=== PATIENT | female | born 1970 | race Caucasian/White ===

== ENCOUNTER 2017-07-18 14:30 | Inpatient (IN) | payer MEDICAID ==
[~2017-07-18] VITALS: Ht 167.6 cm; Wt 63.5 kg
[~2017-07-18 14:30] MED LIST: ACETAMINOPHEN-1 EAC1 PO; CIPRO500 MG PO; CLEOCIN HCL150 MG; CLEOCIN HCL150 MG PO; DOXYCYCLINE 10100 MG PO; FLECAINIDE ACET50 M1; FLEXERIL; FLEXERIL PO; FLOMAX0.4 MG PO; GLUCOPHAGE500 MG; HYDROCODON-ACE1 EAC7 PO; HYDROCODONE-AP1 EAC6 PO; IBUPROFEN 800800 M1 PO; IMODIUM ADVANC1 EAC1 PO; LISINOPRIL10 MG PO; LOPRESSOR25; MACROBID 100 M100 MG PO; METFORMIN HCL500 MG; METFORMIN HCL500 MG PO; NEURONTIN 300300 M1 PO; NORCO 5-325 TA1 EAC1 PO; NORCO 5-325 TA1 EACH PO; NORFLEX100 MG PO; PHENERGAN 25 MG25 M1 PO; PREDNISONE50 MG PO; PRINIVIL20 MG; PYRIDIUM200 MG PO; RANITIDINE 150150 M1; ROBAXIN500 MG PO; TOPROL XL200 MG PO; TRAMADOL 50 MG50 MG PO; VICODIN 5-3001 EACH; ZOFRAN4 MG PO
--- NOTE | 2017-07-18 14:34 | NUR ---
DR VARGAS IN ROOM AT THIS TIME
[2017-07-18 14:35] VITALS: BP 147/94
[2017-07-18 15:06] LABS: HEMOGLOBIN 14.2 gm/dL (12.0-15.0); MCH 31.4 pg (26.0-34.0); RDW-CV 12.3 % (10.5-14.5)
[2017-07-18 15:09] LABS: ABSOLUTE BASOPHILS 0.1 thou/uL (0.0-0.2); ABSOLUTE EOSINOPHILS 0.4 thou/uL (0.0-0.7); ABSOLUTE MONOCYTES 0.9 thou/uL (0.0-1.2); ABSOLUTE NEUTROPHILS 4.8 thou/uL (1.6-8.1); BASOPHILS 0.6 %; EOSINOPHILS 3.4 %; HEMATOCRIT 41.6 % (37.0-47.0); MCHC 34.2 g/dL (28.0-37.0); MCV 91.7 fL (80.0-100.0); MONOCYTES 8.3 %; MPV 9.3 fl. (7.2-11.1); NUCLEATED RBCS 0 /100WBC; PLATELET COUNT* 291 thou/uL (150-400); POLYS 42.7 %; RBC 4.54 mil/uL (4.20-5.00); WBC 11.2 thou/uL (4.0-11.0)
[2017-07-18 15:16] LABS: APTT 20.9 Seconds (25.0-31.3); INR 1.1; PROTIME 10.7 Seconds (9.20-11.50)
[2017-07-18 15:20] LABS: ANION GAP 12 mmol/L (7-16); BUN 7 mg/dL (7-18); CALCIUM 9.4 mg/dL (8.5-10.1); CHLORIDE 100 mmol/L (98-107); CO2 29 mmol/L (21-32); GLUCOSE 152 mg/dL (70-99); POTASSIUM 4.2 mmol/L (3.5-5.1); SODIUM 141 mmol/L (136-145)
[2017-07-18 15:27] LABS: INFLUENZA A ANTIGEN None Detected (None Detect); INFLUENZA B ANTIGEN None Detected (None Detect)
[2017-07-18 15:49] LABS: ALBUMIN 4.2 g/dL (3.4-5.0); ALKALINE PHOSPHATASE 100 U/L (46-116); NT-PRO BRAIN NAT PEPTIDE 67 pg/mL (<300); SGOT 43 U/L (15-37); SGPT 34 U/L (30-65); TOTAL BILIRUBIN 0.3 mg/dL (<0.1-1.0); TOTAL PROTEIN 8.4 g/dL (6.4-8.2); TROPONIN-I LEVEL <0.06 ng/mL (<0.06)
[2017-07-18 16:00] LABS: URINE BILIRUBIN NEGATIVE (Negative); URINE BLOOD NEGATIVE (Negative); URINE CLARITY CLEAR; URINE COLOR YELLOW; URINE GLUCOSE-RANDOM NEGATIVE (Negative); URINE KETONES NEGATIVE (Negative); URINE LEUKOCYTES-REFLEX 1+ (Negative); URINE NITRITE-REFLEX NEGATIVE (Negative); URINE PROTEIN NEGATIVE (Negative); URINE SPECIFIC GRAVITY <= 1.005 (1.005-1.030); URINE UROBILINOGEN 0.2 E.U./dl (0.2-1.0)
[2017-07-18 16:10] LABS: CK-MB MASS 1.7 ng/mL (<0.5-3.6)
[2017-07-18 16:13] LABS: AMP/METHAMP Negative (Negative); BARBITURATES Negative (Negative); BENZODIAZEPINES POSITIVE (Negative); COCAINE Negative (Negative); METHADONE Negative (Negative); OPIATES POSITIVE (Negative); PCP Negative (Negative); THC Negative (Negative)
[2017-07-18 16:32] LABS: URINE WBC-REFLEX 0-5 Rare /HPF (0-5)
[2017-07-18 16:33] LABS: CASTS None Seen /LPF (None Seen); CRYSTALS None Seen /LPF (None Seen); MUCUS None Seen strn/LPF (None Seen); SQUAMOUS 0-3 Few /LPF (0-3); URINE RBC None Seen /HPF (0-2)
[2017-07-18 16:34] LABS: BACTERIA-REFLEX None Seen /HPF (None Seen)
[2017-07-18 17:16] LABS: CSF GLUCOSE 100 mg/dl (40-70); CSF PROTEIN 44.5 mg/dl (15-45)
[2017-07-18 17:35] LABS: CSF CLARITY CLEAR; CSF COLOR COLORLESS; CSF RBC 1 /mm3; CSF WBC 2 /mm3 (0-10); VOLUME 8 ml
[2017-07-18 18:15] LABS: BE -2.4 mmol/L (-2 to +3); HCO3 21.7 mmol/L (22.0-26.0); PCO2 35.3 mmHg (35.0-45.0); PO2 97.7 mmHg (75.0-100.0); pH 7.407 (7.340-7.450)
[2017-07-18 20:04] VITALS: BP 102/48
[2017-07-18 21:00] VITALS: BP 115/58
[2017-07-19] VITALS (7 sets, daily range): BP systolic 82–121; BP diastolic 34–61
--- NOTE | 2017-07-19 04:58 | NUR ---
ASSUMED PT CARE AT 1930, PT IS DROWSY AND LETHARGIC, SHE IS ALERT AND CAN ANSER QUESTIONS CORRECTLY BUT IS SLOW TO RESPOND AND SOMETIMES GETS MIXED UP. PT IS TRACING NSR ON THE MONITOR, ON RA SATTING MID TO HIGH 90'S. ADMISSION COMPLETED CHARTED, PT WAS A POOR HISTORIAN THIS SHIFT. PT IS UP WITH ONE TO THE BSC, SHE IS VERY UNSTABLE ON HER FEET. BED IN LOW POSITION, CALL LIGHT IN REACH, BED ALARM ON, YELLOW ARM BAND AND SOCKS IN PLACE. HOURLY ROUNDING COMPLETED FOR PT SAFETY.
--- NOTE | 2017-07-19 13:10 | EKG ---
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 : 1970 Requested By: Armando Alvarez Order Number: [id number] MD: Olvin Russell Measurements Intervals [place] Rate: 76 P: -11 [place]: 185 QRS: 9 QRSD: 83 T: 46 QT: 398 QTc: 448 Interpretive Statements Sinus rhythm Abnormal R-wave progression, early transition No previous ECG available for comparison Electronically Signed On 07-19-2017 13:10:05 DENIAL MANAGEMENT REPRESENTATIVE by Olvin Russell [email or web address] <ELECTRONICALLY SIGNED> By: Olvin Russell MD, [facility] 07/19/17 1310 1443 1443 Olvin Russell MD, FAC /EPI
--- NOTE | 2017-07-19 14:52 | NUR ---
MET WITH PT TO DISCUSS HOME SITUATION/DC PLANNING. PT LIVES WITH HER PARENTS. SHE IS INDEPENDENT WITH ADLS, USES CANE AND SHOWER CHAIR. SHE HASN'T HAD HH. DENIES ANY DC NEEDS AT THIS TIME. PT PLANS TO RETURN HOME AT DC. WILL FOLLOW
--- NOTE | 2017-07-19 16:52 | NUR ---
ASSUMED PT CARE AT 0700 PT IS ALERT AND ORIENTED X 4 PT IS A FALL RISK BED ALARM IS ON PT C/O PAIN GAVE PAIN MEDS THROUGHOUT SHIFT PT B/P WAS LOW AROUND 1200 SINCE PT WAS GIVEN PAIN MEDS WILL CONTINUE TO MONITOR PT BLOOD PRESSURE. PT IS UNSTEADY ON FEET PT IS UP TO COMMODE WITH ASSISTANCE X 1 PT IS NOT STEADY, PT WANTS TO LEAVE PAGED DR MAR AND VOICED CONCERNS ABOUT PT LEAVING PHYSICIAN NOT OK WITH PT DISCHARDING STATED I WANT PT TO GET THE FULL WORKUP IF PT LEAVES IT WILL BE AGAINST MEDICAL ADVICE, EDUCATED PT ON THE IMPORTANCE OF STAYING PT AGREED, PT IS SR ON MONITOR WILL CONTINUE TO MONITOR
[2017-07-20] VITALS: BP 94/52
--- NOTE | 2017-07-20 02:40 | NUR ---
PATIENT HAS BEEN UP TO BATHRROM X 2 THIS EVENING. SHE GETS UP WITHOUT USING CALL LIGHT. ROOM IS CLOSE. INSTRUCTED TO FOR ASSIST TO BR AND USE CALL LIGHT. IBUPROFEN AND HYDROCODONE GIVEN FOR HEADACHE AND NECK PAIN. RESTING COMFORTABLY NOW. CONT. TO MONITOR. BED ALARM ON, CALL LIGHT IN REACH. NO SIGNS OF DISTRESS. CONT. WITH POC.
[2017-07-20 04:00] VITALS: BP 111/61
[2017-07-20 08:00] VITALS: BP 93/57
--- NOTE | 2017-07-20 09:30 | NUR ---
RECEIVED REPORT. ASSUMED CARE OF PT AT 0730. VSS. PT A&O X4 BUT DROWSY WITH A FLAT AFFECT. O2 SAT 98% ON ROOM AIR. CITY WELLNESS COORDINATOR IN PLACE TRACING SR. AM ASSESSMENT AND VITALS COMPLETED CHARTED. IV SALINE LOCKED. PT REPORTS HEADACHE AT 8/10. SEE EMAR FOR ADMINISTRATION AND REASSESSMENT OF PAIN MEDS. ROOM IS DARKENED AND QUIET PER PT REQUEST. PT INFORMED OF PLAN OF CARE, PT COMMUNCIATES UNDERSTANDING. PT EATING AND DRINKING WITHOUT ISSUE. PT UP WITH ASSISTANCE X1 TO THE BATHROOM, VOIDING WITHOUT DIFFICULTY. HIGH FALL RISK PRECAUTIONS IN PLACE. CALL LIGHT IS WITHIN REACH. WILL CONTINUE TO MONITOR.
[2017-07-20] MEDS ORDERED: ANTIVERT25 MG PO (11:07)
[2017-07-20 11:22] VITALS: BP 103/51
--- NOTE | 2017-07-20 14:15 | NUR ---
DISCHARGE ORDERS RECEIVED. DISCHARGE COMPLETED CHARTED. DISCHARGE SUMMARY AND EDUCATION GONE OVER WITH THE PT. PT COMMUNICATES UNDERSTANDING. IV AND PROTOCOL OFFICER REMOVED. ALL BELONGINGS GATHERED AND SENT WITH THE PT. VSS AT TIME OF DISCHARGE. HEADACHE PARTIALLY RELIEVED WITH PO PAIN MEDICATION. PT EATING AND DRINKING WITHOUT ISSUE AT TIME OF DC. PT LEFT UNIT WITH SPOUSE AND NURSING STAFF IN WHEEL CHAIR. PT LEFT FACILITY WITH SPOUSE IN CAR.
[2018-03-19] MEDS ORDERED: ULTRAM 50MG TAB50 MG PO (05:34)
== END 2017-07-20 15:00 | disposition home or self-care (01) | DRG 149 ==
LOC: M.ERS 14:30 → M.2W 18:27 → M.TBA-ER 18:27 → M.2W 20:17
PROVIDERS: Emergency Medicine Emergency Medical Services; ADMIT Internal Medicine
PROC: 009U3ZX Drainage of Spinal Canal, Percutaneous Approach, Diagnostic (ICD-10-PCS; principal; 2017-07-18)
DX: H81.399 Other peripheral vertigo, unspecified ear (principal); G92 Toxic encephalopathy; E87.2 Acidosis; I10 Essential (primary) hypertension; R51 Headache; E11.9 Type 2 diabetes mellitus without complications; M48.00 Spinal stenosis, site unspecified; M19.90 Unspecified osteoarthritis, unspecified site; Z90.49 Acquired absence of other specified parts of digestive tract; Z90.710 Acquired absence of both cervix and uterus; Z79.84 Long term (current) use of oral hypoglycemic drugs; Z79.899 Other long term (current) drug therapy; Z88.0 Allergy status to penicillin

== ENCOUNTER 2017-10-31 20:17 | Emergency (ER) | payer MEDICAID ==
[~2017-10-31] VITALS: Ht 167.6 cm; Wt 63.5 kg
[~2017-10-31 20:17] MED LIST changes: +ANTIVERT25 MG PO
[2017-10-31] MEDS ORDERED: CYCLOBENZAPRINE5 MG PO (20:41)
[2017-10-31 20:55] VITALS: BP 139/80
[2018-03-19] MEDS ORDERED: ULTRAM 50MG TAB50 MG PO (05:34)
== END 2017-10-31 20:55 | disposition home or self-care (01) ==
LOC: M.ERS 20:17
DX: G89.29 Other chronic pain (principal); M54.2 Cervicalgia; I10 Essential (primary) hypertension; E11.9 Type 2 diabetes mellitus without complications; Z88.0 Allergy status to penicillin; Z90.49 Acquired absence of other specified parts of digestive tract; Z90.711 Acquired absence of uterus with remaining cervical stump

== ENCOUNTER 2017-11-18 03:26 | Emergency (ER) | payer MEDICAID ==
[~2017-11-18] VITALS: Ht 167.6 cm; Wt 63.5 kg
[~2017-11-18 03:26] MED LIST changes: +CYCLOBENZAPRINE5 MG PO
[2017-11-18 03:31] VITALS: BP 128/77
[2017-11-18] MEDS ORDERED: CLINDAMYCIN HC300 MG PO (03:44)
[2017-11-18] MEDS ORDERED: NORCO 5-325 TA1 EACH PO (03:44)
[2018-03-19] MEDS ORDERED: ULTRAM 50MG TAB50 MG PO (05:34)
== END 2017-11-18 03:53 | disposition home or self-care (01) ==
LOC: M.ERS 03:26
DX: K08.89 Other specified disorders of teeth and supporting structures (principal); I10 Essential (primary) hypertension; E11.9 Type 2 diabetes mellitus without complications; Z90.49 Acquired absence of other specified parts of digestive tract; Z90.711 Acquired absence of uterus with remaining cervical stump; Z88.0 Allergy status to penicillin

== ENCOUNTER 2017-12-05 04:28 | Emergency (ER) | payer MEDICAID ==
[~2017-12-05] VITALS: Ht 170.2 cm; Wt 63.5 kg
[~2017-12-05 04:28] MED LIST changes: +CLINDAMYCIN HC300 MG PO
[2017-12-05 05:06] LABS: URINE BILIRUBIN NEGATIVE (Negative); URINE BLOOD NEGATIVE (Negative); URINE CLARITY CLEAR; URINE COLOR YELLOW; URINE GLUCOSE-RANDOM NEGATIVE (Negative); URINE KETONES NEGATIVE (Negative); URINE LEUKOCYTES-REFLEX 1+ (Negative); URINE NITRITE-REFLEX NEGATIVE (Negative); URINE PROTEIN NEGATIVE (Negative); URINE UROBILINOGEN 0.2 E.U./dl (0.2-1.0)
[2017-12-05 05:12] LABS: BACTERIA-REFLEX >30 Many /HPF (None Seen); CASTS None Seen /LPF (None Seen); MUCUS 0-3 Light strn/LPF (None Seen); SQUAMOUS 0-3 Few /LPF (0-3); URINE RBC 0-2 Rare /HPF (0-2); WBC CLUMPS Few (None Seen)
[2017-12-05 05:13] LABS: CRYSTALS None Seen /LPF (None Seen)
[2017-12-05 05:26] LABS: MCHC 35.6 g/dL (28.0-37.0); WBC 7.6 thou/uL (4.0-11.0)
[2017-12-05 05:28] LABS: HEMATOCRIT 34.9 % (37.0-47.0); HEMOGLOBIN 12.4 gm/dL (12.0-15.0); MCH 32.3 pg (26.0-34.0); MCV 90.8 fL (80.0-100.0); MPV 8.5 fl. (7.2-11.1); NUCLEATED RBCS 0 /100WBC; PLATELET COUNT* 300 thou/uL (150-400); RBC 3.85 mil/uL (4.20-5.00); RDW-CV 12.9 % (10.5-14.5)
[2017-12-05 05:38] LABS: CALCIUM 9.1 mg/dL (8.5-10.1); POTASSIUM 3.8 mmol/L (3.5-5.1)
[2017-12-05 05:42] LABS: APTT 22.4 Seconds (25.0-31.3); INR 1.1; PROTIME 10.7 Seconds (9.20-11.50)
[2017-12-05 05:43] LABS: ALBUMIN 3.6 g/dL (3.4-5.0); TOTAL BILIRUBIN 0.2 mg/dL (<0.1-1.0); TOTAL PROTEIN 6.8 g/dL (6.4-8.2)
[2017-12-05 06:18] LABS: ABSOLUTE EOSINOPHILS 0.3 thou/uL (0.0-0.7); ABSOLUTE LYMPHOCYTES 5.2 thou/uL (0.8-5.3); ABSOLUTE MONOCYTES 0.4 thou/uL (0.0-1.2); ABSOLUTE NEUTROPHILS 1.7 thou/uL (1.6-8.1)
[2017-12-05 06:19] LABS: ANISOCYTOSIS 1+; PLATELET ESTIMATE ADEQUATE
[2017-12-05 06:44] VITALS: BP 105/66
[2018-03-19] MEDS ORDERED: ULTRAM 50MG TAB50 MG PO (05:34)
== END 2017-12-05 06:46 | disposition home or self-care (01) ==
LOC: M.ERS 04:28
PROVIDERS: Family Medicine
DX: R53.1 Weakness (principal); M19.90 Unspecified osteoarthritis, unspecified site; I10 Essential (primary) hypertension; E11.9 Type 2 diabetes mellitus without complications; Z90.49 Acquired absence of other specified parts of digestive tract; Z90.710 Acquired absence of both cervix and uterus; Z88.0 Allergy status to penicillin

== ENCOUNTER 2017-12-25 22:11 | Emergency (ER) | payer MEDICAID ==
[~2017-12-25] VITALS: Ht 170.2 cm; Wt 65.8 kg
[2017-12-25 22:32] LABS: URINE BILIRUBIN NEGATIVE (Negative); URINE BLOOD NEGATIVE (Negative); URINE CLARITY HAZY; URINE COLOR YELLOW; URINE GLUCOSE-RANDOM 1+ (Negative); URINE KETONES NEGATIVE (Negative); URINE LEUKOCYTES-REFLEX 1+ (Negative); URINE NITRITE-REFLEX NEGATIVE (Negative); URINE PROTEIN NEGATIVE (Negative); URINE SPECIFIC GRAVITY <= 1.005 (1.005-1.030); URINE UROBILINOGEN 0.2 E.U./dl (0.2-1.0)
[2017-12-25 22:53] LABS: CASTS None Seen /LPF (None Seen); SQUAMOUS 4-10 Moderate /LPF (0-3); URINE RBC None Seen /HPF (0-2); URINE WBC-REFLEX 0-5 Rare /HPF (0-5)
[2017-12-25 22:54] LABS: BACTERIA-REFLEX 1-9 Few /HPF (None Seen); CRYSTALS None Seen /LPF (None Seen)
[2017-12-26] MEDS ORDERED: FLAGYL500 MG PO (00:19)
[2017-12-26 00:27] VITALS: BP 132/77
[2018-03-19] MEDS ORDERED: ULTRAM 50MG TAB50 MG PO (05:34)
== END 2017-12-26 00:28 | disposition home or self-care (01) ==
LOC: M.ERS 22:11
PROVIDERS: Emergency Medicine
DX: N76.0 Acute vaginitis (principal); B96.89 Other specified bacterial agents as the cause of diseases classified elsewhere; I10 Essential (primary) hypertension; E11.9 Type 2 diabetes mellitus without complications; Z90.49 Acquired absence of other specified parts of digestive tract; Z90.711 Acquired absence of uterus with remaining cervical stump; Z88.0 Allergy status to penicillin

== ENCOUNTER 2018-01-05 22:43 | Emergency (ER) | payer MEDICAID ==
[~2018-01-05] VITALS: Ht 170.2 cm; Wt 63.5 kg
[~2018-01-05 22:43] MED LIST changes: +FLAGYL500 MG PO
[2018-01-05] MEDS ORDERED: VOLTAREN GEL 1100 G1 TOP ×2 (23:32→23:42)
[2018-01-05] MEDS ORDERED: VOLTAREN GEL 1100 G2 TOP (23:34)
[2018-01-05 23:50] VITALS: BP 124/77
[2018-03-19] MEDS ORDERED: ULTRAM 50MG TAB50 MG PO (05:34)
== END 2018-01-05 23:51 | disposition home or self-care (01) ==
LOC: M.ERS 22:43
DX: G89.29 Other chronic pain (principal); M25.512 Pain in left shoulder; I10 Essential (primary) hypertension; E11.9 Type 2 diabetes mellitus without complications; Z90.49 Acquired absence of other specified parts of digestive tract; Z90.711 Acquired absence of uterus with remaining cervical stump; Z88.0 Allergy status to penicillin

== ENCOUNTER 2018-02-19 05:47 | Emergency (ER) | payer MEDICAID ==
[~2018-02-19] VITALS: Ht 165.1 cm; Wt 81.7 kg
[~2018-02-19 05:47] MED LIST changes: +VOLTAREN GEL 1100 G1 TOP; +VOLTAREN GEL 1100 G2 TOP
[2018-02-19 06:08] LABS: URINE BILIRUBIN NEGATIVE (Negative); URINE BLOOD NEGATIVE (Negative); URINE CLARITY CLEAR; URINE COLOR STRAW; URINE GLUCOSE-RANDOM TRACE (Negative); URINE KETONES NEGATIVE (Negative); URINE LEUKOCYTES-REFLEX 1+ (Negative); URINE NITRITE-REFLEX NEGATIVE (Negative); URINE PROTEIN NEGATIVE (Negative); URINE UROBILINOGEN 0.2 E.U./dl (0.2-1.0)
[2018-02-19] MEDS ORDERED: PEPCID20 MG PO (06:22)
[2018-02-19] MEDS ORDERED: CARAFATE 1 GM TA1 GM PO (06:22)
[2018-02-19] MEDS ORDERED: ZOFRAN ODT4 MG PO (06:22)
[2018-02-19 06:28] LABS: AMP/METHAMP Negative (Negative); BARBITURATES Negative (Negative); BENZODIAZEPINES POSITIVE (Negative); COCAINE Negative (Negative); METHADONE Negative (Negative); OPIATES POSITIVE (Negative); PCP Negative (Negative); THC Negative (Negative)
[2018-02-19 06:32] LABS: CASTS None Seen /LPF (None Seen); SQUAMOUS >10 Many /LPF (0-3)
[2018-02-19 06:33] LABS: URINE WBC-REFLEX 6-15 Few /HPF (0-5)
[2018-02-19 06:34] LABS: BACTERIA-REFLEX 1-9 Few /HPF (None Seen); CRYSTALS None Seen /LPF (None Seen); URINE RBC 0-2 Rare /HPF (0-2)
[2018-02-19 06:39] VITALS: BP 127/70
[2018-03-19] MEDS ORDERED: ULTRAM 50MG TAB50 MG PO (05:34)
== END 2018-02-19 06:40 | disposition home or self-care (01) ==
LOC: M.ERS 05:47
PROVIDERS: Emergency Medicine
DX: K29.70 Gastritis, unspecified, without bleeding (principal); I10 Essential (primary) hypertension; M19.90 Unspecified osteoarthritis, unspecified site; E11.9 Type 2 diabetes mellitus without complications; Z90.49 Acquired absence of other specified parts of digestive tract; Z90.711 Acquired absence of uterus with remaining cervical stump; Z88.0 Allergy status to penicillin

== ENCOUNTER 2018-03-19 05:15 | Emergency (ER) | payer MEDICAID ==
[~2018-03-19] VITALS: Ht 170.2 cm; Wt 65.8 kg
[~2018-03-19 05:15] MED LIST changes: +CARAFATE 1 GM TA1 GM PO; +PEPCID20 MG PO; +ZOFRAN ODT4 MG PO
[2018-03-19 05:26] VITALS: BP 149/51
[2018-03-19] MEDS ORDERED: ULTRAM 50MG TAB50 MG PO ×2 (05:34)
== END 2018-03-19 05:40 | disposition home or self-care (01) ==
LOC: M.ERS 05:15
DX: S00.83XA Contusion of other part of head, initial encounter (principal); S70.01XA Contusion of right hip, initial encounter; I10 Essential (primary) hypertension; E11.9 Type 2 diabetes mellitus without complications; Z90.49 Acquired absence of other specified parts of digestive tract; Z90.710 Acquired absence of both cervix and uterus; Z88.0 Allergy status to penicillin; W18.2XXA Fall in (into) shower or empty bathtub, initial encounter; Y93.89 Activity, other specified; Y92.89 Other specified places as the place of occurrence of the external cause; Y99.8 Other external cause status

== ENCOUNTER 2018-03-22 10:22 | Emergency (ER) | payer MEDICAID ==
[~2018-03-22] VITALS: Ht 170.2 cm; Wt 65.8 kg
[~2018-03-22 10:22] MED LIST changes: +ULTRAM 50MG TAB50 MG PO
[2018-03-22] MEDS ORDERED: ACETAMINOPHEN-1 EAC1 PO (10:54)
[2018-03-22] MEDS ORDERED: DIFLUCAN150 M1 PO (10:54)
[2018-03-22] MEDS ORDERED: CLEOCIN HCL300 MG PO (10:54)
[2018-03-22 11:04] VITALS: BP 128/86
== END 2018-03-22 11:04 | disposition home or self-care (01) ==
LOC: M.ERS 10:22
DX: K02.9 Dental caries, unspecified (principal); E11.9 Type 2 diabetes mellitus without complications; I10 Essential (primary) hypertension; M41.9 Scoliosis, unspecified; Z88.0 Allergy status to penicillin; Z90.49 Acquired absence of other specified parts of digestive tract; Z90.711 Acquired absence of uterus with remaining cervical stump

== ENCOUNTER 2018-04-25 15:29 | Inpatient (IN) | payer MEDICAID ==
[~2018-04-25] VITALS: Ht 170.2 cm; Wt 68.3 kg
--- NOTE | ~2018-04-25 | PROC ---
[address] [address] PROCEDURE REPORT Name: BOB BARRIENTOS Room: [address] IN .R.#: [id number] Admission: 04/25/18 Attend Phys: Laureen Ayala Discharge: 04/29/18 Date of : 70 Report #: [id number] THIS REPORT FOR: //name// For GI report, Please see the Provation report in Perceptive 7 content. By: 1256Medical Records Staff INEZ /DAVE
[~2018-04-25 15:29] MED LIST changes: +CLEOCIN HCL300 MG PO; +DIFLUCAN150 M1 PO
[2018-04-25 15:42] VITALS: BP 155/83
[2018-04-25 15:43] LABS: URINE BILIRUBIN NEGATIVE (Negative); URINE BLOOD NEGATIVE (Negative); URINE CLARITY CLEAR; URINE COLOR YELLOW; URINE GLUCOSE-RANDOM 3+ (Negative); URINE KETONES NEGATIVE (Negative); URINE LEUKOCYTES-REFLEX 1+ (Negative); URINE NITRITE-REFLEX NEGATIVE (Negative); URINE PROTEIN NEGATIVE (Negative); URINE SPECIFIC GRAVITY <= 1.005 (1.005-1.030); URINE UROBILINOGEN 0.2 E.U./dl (0.2-1.0)
[2018-04-25 15:51] LABS: SQUAMOUS >10 Many /LPF (0-3)
[2018-04-25 15:52] LABS: CASTS None Seen /LPF (None Seen); CRYSTALS None Seen /LPF (None Seen); MUCUS None Seen strn/LPF (None Seen); URINE RBC None Seen /HPF (0-2); URINE WBC-REFLEX 0-5 Rare /HPF (0-5)
[2018-04-25 15:53] LABS: BACTERIA-REFLEX 1-9 Few /HPF (None Seen)
[2018-04-25 15:56] LABS: ABSOLUTE LYMPHOCYTES 1.1 thou/uL (0.8-5.3); ABSOLUTE MONOCYTES 0.1 thou/uL (0.0-1.2); ABSOLUTE NEUTROPHILS 5.1 thou/uL (1.6-8.1); BASOPHILS 0.2 %; EOSINOPHILS 0.1 %; HEMATOCRIT 42.2 % (37.0-47.0); HEMOGLOBIN 14.5 gm/dL (12.0-15.0); LYMPHOCYTES 17.2 %; MCH 31.8 pg (26.0-34.0); MCHC 34.3 g/dL (28.0-37.0); MCV 92.7 fL (80.0-100.0); MONOCYTES 1.7 %; MPV 8.4 fl. (7.2-11.1); NUCLEATED RBCS 0 /100WBC; PLATELET COUNT* 290 thou/uL (150-400); POLYS 80.8 %; RBC 4.55 mil/uL (4.20-5.00); RDW-CV 12.3 % (10.5-14.5); WBC 6.4 thou/uL (4.0-11.0)
[2018-04-25 16:11] LABS: CALCIUM 9.2 mg/dL (8.5-10.1); CREATININE 1.4 mg/dL (0.6-1.3); POTASSIUM 4.3 mmol/L (3.5-5.1)
[2018-04-25 16:15] LABS: ALBUMIN 4.1 g/dL (3.4-5.0); TOTAL BILIRUBIN 0.5 mg/dL (<0.1-1.0); TOTAL PROTEIN 7.9 g/dL (6.4-8.2)
--- NOTE | 2018-04-25 18:14 | NUR ---
FOOD TRAY PROVIDED. PT SITTING UP EATING.
[2018-04-25 20:30] VITALS: BP 139/58
[2018-04-25 20:32] VITALS: BP 122/70
[2018-04-26] MEDS ORDERED: NEURONTIN600 MG PO (00:32)
--- NOTE | 2018-04-26 05:20 | NUR ---
PT ADMITTED THIS SHIFT. PT ORIENTED TO ROOM, FALL AGREEMENT WENT OVER, CALL LIGHT SHOWN. PT STATED UNDERSTANDING. ASSESSMENT DOCUMENTED. MEDS GIVEN PER E-MAR. IV PATENT, FLUIDS INFUSING. PAIN MEDICATION GIVEN PER E-MAR. PT COMPLAIED OF DIFFUCULTY EMPTYING BLADDER AND URINARY FREQUENCY, DR NOTIFIED AND LABS TOLD TO . ORDERS RECIEVED. WILL CONTINUE WITH PLAN OF CARE.
[2018-04-26 08:45] VITALS: BP 102/51
[2018-04-26 10:14] LABS: ABSOLUTE LYMPHOCYTES 1.7 thou/uL (0.8-5.3); ABSOLUTE MONOCYTES 1.3 thou/uL (0.0-1.2); ABSOLUTE NEUTROPHILS 10.7 thou/uL (1.6-8.1); BASOPHILS 0.3 %; EOSINOPHILS 0.1 %; HEMATOCRIT 40.3 % (37.0-47.0); HEMOGLOBIN 13.6 gm/dL (12.0-15.0); LYMPHOCYTES 12.4 %; MCH 31.6 pg (26.0-34.0); MCHC 33.7 g/dL (28.0-37.0); MCV 93.8 fL (80.0-100.0); MONOCYTES 9.3 %; MPV 8.7 fl. (7.2-11.1); NUCLEATED RBCS 0 /100WBC; PLATELET COUNT* 297 thou/uL (150-400); POLYS 77.9 %; RDW-CV 12.2 % (10.5-14.5); WBC 13.7 thou/uL (4.0-11.0)
[2018-04-26 10:29] LABS: CALCIUM 8.9 mg/dL (8.5-10.1); CREATININE 1.1 mg/dL (0.6-1.3); POTASSIUM 4.9 mmol/L (3.5-5.1)
[2018-04-26 10:34] LABS: ALBUMIN 3.6 g/dL (3.4-5.0); TOTAL BILIRUBIN 0.4 mg/dL (<0.1-1.0); TOTAL PROTEIN 6.7 g/dL (6.4-8.2)
[2018-04-26 13:31] LABS: CALCIUM 8.8 mg/dL (8.5-10.1); CREATININE 1.2 mg/dL (0.6-1.3)
--- NOTE | 2018-04-26 15:26 | NUR ---
PT.SITTING UP IN BED. STATED SHE FELT A LITTLE NAUSEOUS. WILL INFORM HER NURSE,JASVIR. PT.STATED SHE LIVES WITH PARENTS. PT.SAID SHE IS PRETTY INDEPENDENT. SHE HAS A CANE AND SHOWER CHAIR DUE TO WEAKNESS IN HER LEGS. SHE DRIVES SHORT DISTANCES. [facility]. SHE SAID HER BLOOD SUGARS HAVE BEEN UP THIS PAST WEEK. SHE CHECKS HER BLOOD SUGAR DAILY. CM WILL FOLLOW.
[2018-04-26 17:22] VITALS: BP 99/60
--- NOTE | 2018-04-26 17:30 | NUR ---
ASSUMED CARE OF PATIENT AFTER MORNING REPORT. ALERT AND ORIENTED X4. ASSESSMENT COMPLETED AND CHARTED. VSS ON ROOM AIR. NO COMPLAINTS OF SOA THIS SHIFT. PAIN AND NAUSEA HAVE BEEN MANAGED WITH MEDICATIONS. FLUIDS AND ANTIBIOTICS INFUSED ORDERED. PATIENT RESTING COMFORTABLY IN BED AT THIS TIME. HOURLY ROUNDS MAINTAINED, CALL LIGHT WITHIN REACH, NURSING WILL CONTINUE TO MONITOR.
[2018-04-26 20:00] VITALS: BP 119/76
[2018-04-26 22:06] LABS: GLYCOHEMOGLOBIN (HGB A1C) 9.3 % (4.8-5.6)
[2018-04-27 04:27] LABS: CALCIUM 8.2 mg/dL (8.5-10.1); CREATININE 1.1 mg/dL (0.6-1.3)
--- NOTE | 2018-04-27 04:57 | NUR ---
ASSUMED CARE OF PT AFTER REPORT AT 1930. PT A&OX4. VSS. PHYSICAL ASSESSMENT COMPLETED AND CHARTED. PT ON RA WITH 92% O2 SAT.PT UP ADLIB TO THE TOILET. PT COMPLAINED OF ABDOMINAL AND FLANK PAIN WITH PAIN SCALE OF 8/10- PAIN MEDS GIVEN PER MAR WITH PARTIAL RELIEF. PT RESTED WELL ON BED. PT OM ISOLATION PRECAUTION FOR POSSIBLE C. DIFF. STOOL SPECIMEN STILL TO COLLECT. PT DOES NOT HAVE ANY EPISODE OF LIQUID STOOL FOR TONIGHT. HOURLY ROUNDING OBSERVED. CALL LIGHT WITHIN REACH. BED IN LOW POSITION.
[2018-04-27 09:20] VITALS: BP 111/59
[2018-04-27 16:00] VITALS: BP 110/50
--- NOTE | 2018-04-27 16:22 | NUR ---
ASSUMED CARE OF PATIENT AFTER MORNING REPORT. ALERT AND ORIENTED X4. ASSESSMENT COMPLETED AND CHARTED. VSS ON ROOM AIR. NO COMPLAINTS OF SOA THIS SHIFT. PAIN AND NAUSEA HAVE BEEN MANAGED WITH MEDICATIONS. PATIENT ANXIOUS THIS AFTERNOON AND GIVEN ATIVAN. FLUIDS INFUSED ORDERED. FLUID RESTRICTION ORDERED WITH LAB REDRAW IN THWE AM TO REASSESS SODIUM LEVELS. RESTING COMFORTABLY IN BED ON HOURLY ROUNDS, CALL LIGHT IS WITHIN REACH AND NURSING WILL CONTINUE TO MONITOR.
[2018-04-27 20:50] VITALS: BP 134/75
--- NOTE | 2018-04-28 04:10 | NUR ---
PATIENT REMAINS ALERT AND ORIENTED. PAIN PARTIALLY CONTROLLED WITH TORADOL. NPO AFTER MIDNIGHT FOR EGD/COLONOSCOPY. PATIENT ABLE TO TOLERATE HALF OF GOLYTELY PREP. VOMITED X2. LOOSE BM'S- NOT CLEAR. PATIENT SHOWERED THIS AM. UP AD HERMES IN ROOM. IV ABX AND IVF INFUSING ORDERED. CALL LIGHT WITHIN REACH. WILL CONTINUE TO MONITOR.
[2018-04-28 04:42] LABS: ABSOLUTE EOSINOPHILS 0.2 thou/uL (0.0-0.7); ABSOLUTE LYMPHOCYTES 3.8 thou/uL (0.8-5.3); ABSOLUTE MONOCYTES 0.9 thou/uL (0.0-1.2); ABSOLUTE NEUTROPHILS 6.6 thou/uL (1.6-8.1); BASOPHILS 0.2 %; EOSINOPHILS 1.9 %; HEMATOCRIT 37.9 % (37.0-47.0); LYMPHOCYTES 32.8 %; MCH 31.7 pg (26.0-34.0); MCHC 34.2 g/dL (28.0-37.0); MCV 92.5 fL (80.0-100.0); MONOCYTES 7.9 %; MPV 8.7 fl. (7.2-11.1); NUCLEATED RBCS 0 /100WBC; PLATELET COUNT* 326 thou/uL (150-400); POLYS 57.2 %; RDW-CV 12.2 % (10.5-14.5); WBC 11.5 thou/uL (4.0-11.0)
[2018-04-28 05:00] LABS: CALCIUM 8.8 mg/dL (8.5-10.1); CREATININE 1.2 mg/dL (0.6-1.3); POTASSIUM 3.9 mmol/L (3.5-5.1)
--- NOTE | 2018-04-28 06:25 | NUR ---
HOURLY ROUNDING COMPLETED
[2018-04-28 08:30] VITALS: BP 113/66
--- NOTE | 2018-04-28 10:59 | NUR ---
Nutrition: Pt admitted with LLQ/flank pain, poor intake, decreased appetite, elevated BG. Vomiting began when she was admitted. Bowel prep now for EGD/colonoscopy today. Pt stated she ate lunch yday, but did vomit, and has been NPO since. She stated she had been having abd pain and spasms when she ate or drank for about two weeks. She stated she may have had "a little" wt loss. Current wt: 150#. BG was 300s at admit, not 125, albumin 3.6, A1c 9.3%. H/o DMII, HTN, scoliosis. RX: insulin, metformin, lisinopril. Awaiting scope results. RD will follow up on scope results, and possible DM education need 05/01/18.
[2018-04-28 16:06] VITALS: BP 133/76
--- NOTE | 2018-04-28 18:33 | NUR ---
ALERT AND ORIENTED X4. UP AD HERMES IN ROOM. IV IS PATENT AND INFUSING. PAIN BEING MANAGED WITH PO AND IV PAIN MEDICATION. ON COLON PREP TODAY, HAD MULTIPLE BOWEL MOVEMENTS AND PATIENT STATES SHE IS CLEAR, NURSE HAS NOT BEEN ABLE TO SEE PATIENTS STOOL. ASKED MULTIPLE TIMES TO SEE PATIENTS STOOL. VSS ON ROOM AIR. HOURLY ROUNDS HAVE BEEN MAINTAINED THROUGHOUT SHIFT. CALL LIGHT IS WITHIN REACH. NURSING WILL CONTINUE TO MONITOR.
[2018-04-28 21:30] VITALS: BP 117/68; BP 133/76
[2018-04-29 02:45] VITALS: BP 133/76; BP 141/90
[2018-04-29 03:23] LABS: CALCIUM 8.3 mg/dL (8.5-10.1); CREATININE 0.9 mg/dL (0.6-1.3); POTASSIUM 3.3 mmol/L (3.5-5.1)
--- NOTE | 2018-04-29 05:54 | NUR ---
ALERT AND ORIENTED X4. UP AD HERMES IN ROOM. PATIENT DOING BOWEL PREP BUT LARGE AMOUNT STILL LEFT IN BOTTLE. PATIENT STATED BOWELS WERE CLEAR YELLOW BUT WOULD ALWAYS FLUSH TOILET BEFORE SHOWING US. PAIN MEDICATION GIVEN FOR ABDOMINAL PAIN WITH SOME RELIEF. CALL LIGHT WITHIN REACH.
--- NOTE | 2018-04-29 10:20 | NUR ---
PATIENT ARRIVED BACK TO UNIT FROM PACU AT 1005. ALERT AND ORIENTED X 4. VITAL SIGNS STABLE ON ROOM AIR. AFEBRILE. CALL LIGHT WITHIN REACH. NURSING WILL CONTINUE TO MONITOR.
--- NOTE | 2018-04-29 12:34 | NUR ---
ASSUMED CARE OF PATIENT AT 0700. ALERT AND ORIENTED X 4. VITAL SIGNS STABLE ON ROOM AIR. PATIENT HAS BEEN PLEASANT AND COOPERATIVE SINCE COMING ON SHIFT. PATIENT HAS BEEN SLEEPING OFF AND ON. TOLERATING DIET. MEDICATIONS GIVEN ORDERED. NURSING WILL CONTINUE TO MONITOR.
[2018-04-29 13:42] VITALS: BP 135/72
[2018-04-29] MEDS ORDERED: CIPRO500 MG PO (14:01)
--- NOTE | 2018-04-29 15:30 | NUR ---
PATIENT DISCHARGED FROM UNIT AT 1520. ALERT AND ORIENTED X 4. VITAL SIGNS STABLE ON ROOM AIR. AFEBRILE. UP AD HERMES. PAIN AND NAUSEA BEING MANAGED WITH MEDICATION. DISCHARGE INSTRUCTIONS, MEDICATION INSTRUCTIONS, AND SCRIPT GIVEN TO PATIENT. LEFT WITH ALL BELONGINGS. PATIENT LEFT WITH FATHER AND BROTHER VIA CAR.
[2018-04-29 15:38] VITALS: BP 135/72
--- NOTE | 2018-04-30 14:56 | EKG ---
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: CHEVY : 1970 Requested By: Eric Chavez Order Number: [id number] MD: Chris Steele Measurements Intervals [place] Rate: 66 P: 22 MS: 190 QRS: 14 QRSD: 71 T: 56 QT: 408 QTc: 428 Interpretive Statements Sinus rhythm RSR' in V1 or V2, right VCD or RVH Compared to ECG 07/18/2017 14:43:54 Right ventricular hypertrophy now present RSR' in V1 or V2 now present Electronically Signed On 04-30-2018 14:55:53 CDT by Chris Steele [email or web address] <ELECTRONICALLY SIGNED> By: Chris Steele MD, FACC 04/30/18 1455 0143 0143 Chris Steele MD, FACC /EPI
--- NOTE | 2018-05-01 11:22 | CON ---
[address] [address] CONSULTATION Name: BOB BARRIENTOS Room: [address]#: [id number] Admission: 04/25/18 Attend Phys: Laureen Ayala Discharge: 04/29/18 Date of : 70 Report #: [id number] THIS REPORT FOR: //name// CC: FAM unknown Eric Chavez HISTORY OF PRESENT ILLNESS: The patient is a pleasant 48-year-old female with past medical history significant for hypertension, diabetes, hyperlipidemia, who is presenting with left lower quadrant abdominal pain and diarrhea. The patient reports her symptoms began 1 week back. She reports that she began noticing loose stools about 3-4 per day 1 week back. She denies any travel, sick contacts, food allergies. She reports the pain is located in the lower left quadrant, is localized, nonradiating and has no specific association with food or bowel movements. She denies any blood in her stool, and reports her stool is yellow in color. The patient denies any fevers or chills and reports about 6-7 pound weight loss in the last 1 week. She denies having an EGD or colonoscopy done in the past. PAST MEDICAL HISTORY: As mentioned above. The patient has a history of hypertension, diabetes and hyperlipidemia. PAST SURGICAL HISTORY: The patient had hysterectomy. SOCIAL HISTORY: The patient denies smoking or recreational drug use and reports intermittent alcohol use. FAMILY HISTORY: The patient reports her mother and sister, both were diagnosed with colon cancer. REVIEW OF SYSTEMS: A comprehensive 10-point review of systems negative except what was mentioned here. PHYSICAL EXAMINATION: VITAL SIGNS: Temperature 36.9, pulse rate 72, respirations 20, blood pressure 99/60. GENERAL: The patient is alert, awake, oriented x 3. HEENT: Mucous membranes are moist. There is no congestion.. LUNGS: Clear to auscultation bilaterally. CARDIOVASCULAR: Rate and rhythm regular; S1, S2 present. ABDOMEN: Soft. There is no distention, no tenderness, no guarding or rigidity. LUNGS: Clear to auscultation bilaterally. EXTREMITIES: Warm and well perfused. NEUROLOGIC: There is no focal neurological deficit. IMAGING: Abdomen, pelvic CT, no acute process within the abdomen and pelvis, no stones [place] [address] CONSULTATION Name: ILIANABOB Room: [address]#: [id number] Admission: 04/25/18 Attend Phys: Laureen Ayala Discharge: 04/29/18 Date of : 70 Report #: [id number] ASSESSMENT AND PLAN: A pleasant 48-year-old female with past medical history significant for hypertension, diabetes and hyperlipidemia, presenting with abdominal pain and diarrhea. Clostridium difficile has been ordered, I would wait for this. If C. diff is negative, we will proceed with endoscopic evaluation. <ELECTRONICALLY SIGNED> By: Tacos Marquez MD 05/01/18 1122 1940 [id number] Marquez MD /nt
--- NOTE | 2018-05-26 14:57 | PATH ---
[address] [address] PATHOLOGY RPT PROCEDURE Name: BOB BARRIENTOS Room: [address] IN M.R.#: [id number] Admission: 04/25/18 Date of : 70 Discharge: 04/29/18 Report #: [id number] Path Case #: [id number] [facility] Accession Number: [id number] . 01 Material submitted: . RANDOM GASTRIC BIOPSY . 01 Clinical history: . None provided . 02 Diagnosis: Random gastric, biopsy: - Mild chronic inactive gastritis with prominent reactive-type changes. - An H. pylori immunostain is negative (block A1; appropriately reactive control). (MAP/db; 05/02/18) LBQ/05/02/2018 . 02 Electronically signed: . Chris Remy MD, Pathologist NPI- [id number] . 01 Gross description: . The specimen is received in formalin, labeled "Bob Barrientos, random biopsies-gastric", are four garcía soft tissues ranging from 0.2 cm up to 0.7 cm in greatest dimension and measuring 0.8 x 0.6 x 0.1 cm in aggregate, entirely submitted in A1. (SWS; 05/01/2018) SHS/SHS . 02 Pathologist provided ICD-10: K29.50 . 02 CPT . 750512, O62116 Specimen Comment: Report sent to / DR HENNESSY Performed at: 01 [facility] [address], [place], [place] [address] MD Mynor De La Torre MD Phone: [phone] Performed at: [address] [facility] [address], [place], [place] [id number] MD Cory Thurston MD Phone: [phone]
== END 2018-04-29 15:20 | disposition home or self-care (01) | DRG 392 ==
LOC: M.ERS 15:29 → M.TBA-ER 17:41 → M.ORTHSURG 17:41
PROVIDERS: Physician Assistant; ADMIT Internal Medicine
DX: K29.70 Gastritis, unspecified, without bleeding (principal); E87.1 Hypo-osmolality and hyponatremia; M19.90 Unspecified osteoarthritis, unspecified site; E78.5 Hyperlipidemia, unspecified; I10 Essential (primary) hypertension; K64.4 Residual hemorrhoidal skin tags; K64.8 Other hemorrhoids; E11.65 Type 2 diabetes mellitus with hyperglycemia; Z90.49 Acquired absence of other specified parts of digestive tract; Z90.711 Acquired absence of uterus with remaining cervical stump; Z88.0 Allergy status to penicillin; Z80.0 Family history of malignant neoplasm of digestive organs; Z82.3 Family history of stroke; Z79.899 Other long term (current) drug therapy

== ENCOUNTER 2018-05-15 14:17 | Emergency (ER) | payer MEDICAID ==
[~2018-05-15] VITALS: Ht 170.2 cm; Wt 64.4 kg
[~2018-05-15 14:17] MED LIST changes: +NEURONTIN600 MG PO
[2018-05-15] MEDS ORDERED: HYDROCODONE-AP1 EAC6 PO (17:09)
[2018-05-15] MEDS ORDERED: NABUMETONE 750750 M1 PO (17:09)
[2018-05-15] MEDS ORDERED: MEDROLDOSEPACK PO (17:09)
[2018-05-15] MEDS ORDERED: ROBAXIN 750 MG750 M1 PO (17:09)
[2018-05-15 17:40] VITALS: BP 129/68
== END 2018-05-15 17:40 | disposition home or self-care (01) ==
LOC: M.ERS 14:17
DX: M48.061 Spinal stenosis, lumbar region without neurogenic claudication (principal); M54.16 Radiculopathy, lumbar region; I10 Essential (primary) hypertension; E11.9 Type 2 diabetes mellitus without complications; Z90.49 Acquired absence of other specified parts of digestive tract; Z90.710 Acquired absence of both cervix and uterus; Z88.0 Allergy status to penicillin

== ENCOUNTER 2018-07-21 21:06 | Emergency (ER) | payer MEDICAID ==
[~2018-07-21 21:06] MED LIST changes: +MEDROLDOSEPACK PO; +NABUMETONE 750750 M1 PO; +ROBAXIN 750 MG750 M1 PO
== END 2018-07-21 21:43 | disposition left against medical advice (07) ==
LOC: M.ERS 21:06
DX: Z53.21 Procedure and treatment not carried out due to patient leaving prior to being seen by health care provider (principal)

== ENCOUNTER 2018-07-27 14:27 | Emergency (ER) | payer MEDICAID ==
[~2018-07-27] VITALS: Ht 170.2 cm; Wt 64.4 kg
[2018-07-27 14:58] LABS: ABSOLUTE EOSINOPHILS 0.3 thou/uL (0.0-0.7); ABSOLUTE LYMPHOCYTES 3.6 thou/uL (0.8-5.3); ABSOLUTE MONOCYTES 0.7 thou/uL (0.0-1.2); ABSOLUTE NEUTROPHILS 3.5 thou/uL (1.6-8.1); BASOPHILS 0.5 %; EOSINOPHILS 3.2 %; HEMATOCRIT 37.9 % (37.0-47.0); HEMOGLOBIN 13.1 gm/dL (12.0-15.0); LYMPHOCYTES 44.4 %; MCH 32.1 pg (26.0-34.0); MCHC 34.6 g/dL (28.0-37.0); MCV 92.8 fL (80.0-100.0); MONOCYTES 9.2 %; MPV 8.5 fl. (7.2-11.1); NUCLEATED RBCS 0 /100WBC; PLATELET COUNT* 268 thou/uL (150-400); POLYS 42.7 %; RBC 4.09 mil/uL (4.20-5.00); WBC 8.1 thou/uL (4.0-11.0)
[2018-07-27 15:09] LABS: CALCIUM 9.6 mg/dL (8.5-10.1); CREATININE 1.2 mg/dL (0.6-1.3); POTASSIUM 3.6 mmol/L (3.5-5.1)
[2018-07-27 15:16] LABS: ALBUMIN 3.8 g/dL (3.4-5.0); TOTAL BILIRUBIN 0.4 mg/dL (<0.1-1.0); TOTAL PROTEIN 6.9 g/dL (6.4-8.2)
[2018-07-27] MEDS ORDERED: ZOFRAN4 MG PO (15:33)
[2018-07-27] MEDS ORDERED: CLEOCIN HCL150 MG PO (15:33)
[2018-07-27] MEDS ORDERED: BENTYL 20 MG TA20 M1 PO (15:33)
[2018-07-27] MEDS ORDERED: HYDROCODONE-AP1 EAC6 PO (15:39)
[2018-07-27 15:47] VITALS: BP 137/77
[2018-07-27] MEDS ORDERED: FLAGYL500 M1 PO (23:47)
[2018-07-27] MEDS ORDERED: CIPROFLOXACIN500 M1 PO (23:47)
== END 2018-07-27 15:47 | disposition home or self-care (01) ==
LOC: M.ERS 14:27
PROVIDERS: Nurse Practitioner Family
DX: K02.9 Dental caries, unspecified (principal); R10.12 Left upper quadrant pain; R19.7 Diarrhea, unspecified; I10 Essential (primary) hypertension; E11.9 Type 2 diabetes mellitus without complications; M41.9 Scoliosis, unspecified; Z88.0 Allergy status to penicillin; Z90.711 Acquired absence of uterus with remaining cervical stump

== ENCOUNTER 2018-07-27 21:51 | Emergency (ER) | payer MEDICAID ==
[~2018-07-27] VITALS: Ht 170.2 cm; Wt 64.4 kg
[~2018-07-27 21:51] MED LIST changes: +BENTYL 20 MG TA20 M1 PO
[2018-07-27 22:25] LABS: URINE BILIRUBIN NEGATIVE (Negative); URINE BLOOD NEGATIVE (Negative); URINE CLARITY CLEAR; URINE COLOR YELLOW; URINE GLUCOSE-RANDOM 2+ (Negative); URINE KETONES NEGATIVE (Negative); URINE LEUKOCYTES-REFLEX 1+ (Negative); URINE NITRITE-REFLEX NEGATIVE (Negative); URINE PROTEIN NEGATIVE (Negative); URINE SPECIFIC GRAVITY 1.025 (1.005-1.030); URINE UROBILINOGEN 0.2 E.U./dl (0.2-1.0)
[2018-07-27 22:26] LABS: ABSOLUTE EOSINOPHILS 0.2 thou/uL (0.0-0.7); ABSOLUTE LYMPHOCYTES 2.5 thou/uL (0.8-5.3); ABSOLUTE MONOCYTES 0.6 thou/uL (0.0-1.2); BASOPHILS 0.4 %; EOSINOPHILS 3.8 %; HEMATOCRIT 36.1 % (37.0-47.0); HEMOGLOBIN 12.6 gm/dL (12.0-15.0); LYMPHOCYTES 39.2 %; MCH 32.3 pg (26.0-34.0); MCHC 34.8 g/dL (28.0-37.0); MCV 92.9 fL (80.0-100.0); MONOCYTES 9.9 %; MPV 8.6 fl. (7.2-11.1); NUCLEATED RBCS 0 /100WBC; PLATELET COUNT* 271 thou/uL (150-400); POLYS 46.7 %; RBC 3.88 mil/uL (4.20-5.00); RDW-CV 13.1 % (10.5-14.5); WBC 6.4 thou/uL (4.0-11.0)
[2018-07-27 22:34] LABS: CALCIUM 8.7 mg/dL (8.5-10.1); CREATININE 1.1 mg/dL (0.6-1.3); POTASSIUM 3.8 mmol/L (3.5-5.1)
[2018-07-27 22:38] LABS: ALBUMIN 3.6 g/dL (3.4-5.0); TOTAL BILIRUBIN 0.3 mg/dL (<0.1-1.0); TOTAL PROTEIN 6.6 g/dL (6.4-8.2)
[2018-07-27 22:43] LABS: HYALINE CASTS 4-10 Moderate /LPF (None Seen); MUCUS 4-6 Moderate strn/LPF (None Seen); SQUAMOUS >10 Many /LPF (0-3); URINE RBC 0-2 Rare /HPF (0-2); URINE WBC-REFLEX 0-5 Rare /HPF (0-5)
[2018-07-27 22:44] LABS: BACTERIA-REFLEX 1-9 Few /HPF (None Seen); CRYSTALS None Seen /LPF (None Seen)
[2018-07-27] MEDS ORDERED: CIPROFLOXACIN500 M1 PO (23:47)
[2018-07-27] MEDS ORDERED: FLAGYL500 M1 PO (23:47)
[2018-07-28 00:05] VITALS: BP 131/82
== END 2018-07-28 00:07 | disposition home or self-care (01) ==
LOC: M.ERS 21:51
PROVIDERS: Nurse Practitioner Family
DX: K52.9 Noninfective gastroenteritis and colitis, unspecified (principal); M48.00 Spinal stenosis, site unspecified; M19.90 Unspecified osteoarthritis, unspecified site; I10 Essential (primary) hypertension; E11.9 Type 2 diabetes mellitus without complications; M41.9 Scoliosis, unspecified; Z90.49 Acquired absence of other specified parts of digestive tract; Z88.0 Allergy status to penicillin; Z90.711 Acquired absence of uterus with remaining cervical stump

== ENCOUNTER 2018-08-03 23:52 | Emergency (ER) | payer MEDICAID ==
[~2018-08-03] VITALS: Ht 170.2 cm; Wt 64.9 kg
[~2018-08-03 23:52] MED LIST changes: +CIPROFLOXACIN500 M1 PO; +FLAGYL500 M1 PO
[2018-08-04] MEDS ORDERED: ATIVAN (00:10)
[2018-08-04] MEDS ORDERED: MEDROLDOSEPACK PO (00:56)
[2018-08-04] MEDS ORDERED: NORCO 5-325 TA1 EACH PO (00:56)
[2018-08-04] MEDS ORDERED: FLEXERIL PO (00:56)
[2018-08-04 01:09] VITALS: BP 125/70
== END 2018-08-04 01:10 | disposition home or self-care (01) ==
LOC: M.ERS 23:52
DX: M25.511 Pain in right shoulder (principal); M25.512 Pain in left shoulder; Z90.49 Acquired absence of other specified parts of digestive tract; Z90.710 Acquired absence of both cervix and uterus; Z88.0 Allergy status to penicillin

== ENCOUNTER 2018-08-10 22:23 | Emergency (ER) | payer MEDICAID ==
[~2018-08-10] VITALS: Ht 170.2 cm; Wt 65.8 kg
[~2018-08-10 22:23] MED LIST changes: +ATIVAN
[2018-08-10 23:02] LABS: ABSOLUTE EOSINOPHILS 0.2 thou/uL (0.0-0.7); ABSOLUTE LYMPHOCYTES 3.6 thou/uL (0.8-5.3); ABSOLUTE MONOCYTES 0.7 thou/uL (0.0-1.2); ABSOLUTE NEUTROPHILS 3.6 thou/uL (1.6-8.1); BASOPHILS 0.6 %; EOSINOPHILS 2.5 %; HEMATOCRIT 38.7 % (37.0-47.0); HEMOGLOBIN 13.6 gm/dL (12.0-15.0); LYMPHOCYTES 43.5 %; MCH 32.6 pg (26.0-34.0); MCHC 35.2 g/dL (28.0-37.0); MCV 92.5 fL (80.0-100.0); MONOCYTES 8.8 %; MPV 8.7 fl. (7.2-11.1); NUCLEATED RBCS 0 /100WBC; PLATELET COUNT* 289 thou/uL (150-400); POLYS 44.6 %; RBC 4.18 mil/uL (4.20-5.00); RDW-CV 12.7 % (10.5-14.5); WBC 8.2 thou/uL (4.0-11.0)
[2018-08-10 23:17] LABS: CALCIUM 9.7 mg/dL (8.5-10.1); CREATININE 1.1 mg/dL (0.6-1.3); POTASSIUM 3.6 mmol/L (3.5-5.1)
[2018-08-10 23:22] LABS: ALBUMIN 3.9 g/dL (3.4-5.0); TOTAL BILIRUBIN 0.3 mg/dL (<0.1-1.0); TOTAL PROTEIN 7.1 g/dL (6.4-8.2)
[2018-08-10 23:55] LABS: INFLUENZA A ANTIGEN None Detected (None Detect); INFLUENZA B ANTIGEN None Detected (None Detect)
[2018-08-11] MEDS ORDERED: MIRALAX17 G1 PO (00:30)
[2018-08-11 00:39] VITALS: BP 137/68
== END 2018-08-11 01:05 | disposition home or self-care (01) ==
LOC: M.ERS 22:23
PROVIDERS: Nurse Practitioner
DX: K59.00 Constipation, unspecified (principal); Z88.0 Allergy status to penicillin; Z90.710 Acquired absence of both cervix and uterus; Z90.49 Acquired absence of other specified parts of digestive tract

== ENCOUNTER 2018-08-20 10:13 | Emergency (ER) | payer MEDICAID ==
[~2018-08-20] VITALS: Ht 170.2 cm; Wt 66.7 kg
[~2018-08-20 10:13] MED LIST changes: +MIRALAX17 G1 PO
[2018-08-20 10:55] LABS: ABSOLUTE EOSINOPHILS 0.1 thou/uL (0.0-0.7); ABSOLUTE LYMPHOCYTES 2.7 thou/uL (0.8-5.3); ABSOLUTE MONOCYTES 0.6 thou/uL (0.0-1.2); ABSOLUTE NEUTROPHILS 2.2 thou/uL (1.6-8.1); BASOPHILS 0.8 %; EOSINOPHILS 1.8 %; HEMATOCRIT 40.8 % (37.0-47.0); HEMOGLOBIN 14.3 gm/dL (12.0-15.0); LYMPHOCYTES 47.3 %; MCH 32.7 pg (26.0-34.0); MCHC 35.1 g/dL (28.0-37.0); MPV 8.9 fl. (7.2-11.1); NUCLEATED RBCS 0 /100WBC; PLATELET COUNT* 274 thou/uL (150-400); POLYS 39.1 %; RBC 4.38 mil/uL (4.20-5.00); RDW-CV 12.6 % (10.5-14.5); WBC 5.6 thou/uL (4.0-11.0)
[2018-08-20 11:02] LABS: ANION GAP 10 mmol/L (7-16); BUN 6 mg/dL (7-18); CHLORIDE 101 mmol/L (98-107); CO2 27 mmol/L (21-32); GLUCOSE 282 mg/dL (70-99); POTASSIUM 3.9 mmol/L (3.5-5.1); SODIUM 138 mmol/L (136-145)
[2018-08-20 11:09] LABS: ALBUMIN 4.1 g/dL (3.4-5.0); ALKALINE PHOSPHATASE 67 U/L (46-116); SGOT 15 U/L (15-37); SGPT 26 U/L (30-65); TOTAL BILIRUBIN 0.2 mg/dL (<0.1-1.0); TOTAL PROTEIN 7.4 g/dL (6.4-8.2); TROPONIN-I LEVEL <0.06 ng/mL (<0.06)
[2018-08-20 11:42] LABS: URINE BILIRUBIN NEGATIVE (Negative); URINE BLOOD NEGATIVE (Negative); URINE CLARITY CLEAR; URINE COLOR YELLOW; URINE GLUCOSE-RANDOM 2+ (Negative); URINE KETONES TRACE (Negative); URINE LEUKOCYTES-REFLEX NEGATIVE (Negative); URINE NITRITE-REFLEX NEGATIVE (Negative); URINE PROTEIN NEGATIVE (Negative); URINE UROBILINOGEN 0.2 E.U./dl (0.2-1.0)
[2018-08-20 11:49] LABS: AMP/METHAMP Negative (Negative); BARBITURATES Negative (Negative); BENZODIAZEPINES POSITIVE (Negative); COCAINE Negative (Negative); METHADONE Negative (Negative); OPIATES Negative (Negative); PCP Negative (Negative); THC Negative (Negative)
[2018-08-20] MEDS ORDERED: NORCO 5-325 TA1 EACH PO (12:24)
[2018-08-20] MEDS ORDERED: METFORMIN HCL500 MG PO (12:24)
[2018-08-20 12:50] VITALS: BP 118/73
--- NOTE | 2018-08-21 11:02 | EKG ---
[place] [address] ELECTROCARDIOGRAM REPORT Name: BARRIENTOSBOB Room: [facility]#: [id number] Admission: 08/20/18 Attend Phys: Discharge: 08/20/18 Date of : 70 Report #: [id number] THIS REPORT FOR: //name// [facility] ED Test Date: 2018-08-20 Test Time: 10:50:37 Pat Name: BOB BARRIENTOS Department: Room: Gender: F Network Systems Engineer: Tigre WHITLEY : 1970 Requested By: Lo Bishop Order Number: [id number] MD: Vamsi Dunne Measurements Intervals [place] Rate: 92 P: 47 MT: 193 QRS: 6 QRSD: 88 T: 38 QT: 366 QTc: 453 Interpretive Statements Sinus rhythm Abnormal R-wave progression, early transition Compared to ECG 04/29/2018 01:43:21 no change Electronically Signed On 08-21-2018 11:02:39 SANDING MACHINE TENDER by Vamsi Dunne [email or web address] <ELECTRONICALLY SIGNED> By: Vamsi Dunne MD, [facility] 08/21/18 1102 1050 1050 Vamsi Dunne MD, FACC /EPI
== END 2018-08-20 12:50 | disposition home or self-care (01) ==
LOC: M.ERS 10:13
PROVIDERS: Physician Assistant
DX: G89.29 Other chronic pain (principal); M25.551 Pain in right hip; M54.5 Low back pain; Z76.0 Encounter for issue of repeat prescription; E11.65 Type 2 diabetes mellitus with hyperglycemia; I10 Essential (primary) hypertension; Z90.49 Acquired absence of other specified parts of digestive tract; Z90.710 Acquired absence of both cervix and uterus; Z88.0 Allergy status to penicillin; W19.XXXA Unspecified fall, initial encounter; Y93.89 Activity, other specified; Y92.89 Other specified places as the place of occurrence of the external cause; Y99.8 Other external cause status

== ENCOUNTER 2018-08-31 04:46 | Observation (INO) | payer MEDICAID ==
[~2018-08-31] VITALS: Ht 170.2 cm; Wt 66.7 kg
[2018-08-31 04:54] VITALS: BP 149/95
[2018-08-31] MEDS ORDERED: LOPRESSOR25 PO (05:02)
[2018-08-31 05:23] LABS: URINE BILIRUBIN NEGATIVE (Negative); URINE BLOOD NEGATIVE (Negative); URINE CLARITY CLEAR; URINE COLOR YELLOW; URINE GLUCOSE-RANDOM 1+ (Negative); URINE KETONES TRACE (Negative); URINE LEUKOCYTES-REFLEX NEGATIVE (Negative); URINE NITRITE-REFLEX NEGATIVE (Negative); URINE PROTEIN NEGATIVE (Negative); URINE UROBILINOGEN 0.2 E.U./dl (0.2-1.0)
[2018-08-31 05:43] LABS: ABSOLUTE BASOPHILS 0.1 thou/uL (0.0-0.2); ABSOLUTE LYMPHOCYTES 2.2 thou/uL (0.8-5.3); ABSOLUTE MONOCYTES 1.2 thou/uL (0.0-1.2); ABSOLUTE NEUTROPHILS 15.7 thou/uL (1.6-8.1); BASOPHILS 0.4 %; EOSINOPHILS 0.2 %; HEMATOCRIT 40.7 % (37.0-47.0); HEMOGLOBIN 14.1 gm/dL (12.0-15.0); LYMPHOCYTES 11.7 %; MCH 31.8 pg (26.0-34.0); MCHC 34.6 g/dL (28.0-37.0); MCV 91.8 fL (80.0-100.0); MONOCYTES 6.1 %; MPV 8.7 fl. (7.2-11.1); NUCLEATED RBCS 0 /100WBC; PLATELET COUNT* 276 thou/uL (150-400); POLYS 81.6 %; RBC 4.43 mil/uL (4.20-5.00); RDW-CV 12.4 % (10.5-14.5); WBC 19.2 thou/uL (4.0-11.0)
[2018-08-31 05:52] LABS: CALCIUM 10.4 mg/dL (8.5-10.1); CREATININE 1.1 mg/dL (0.6-1.3); POTASSIUM 3.5 mmol/L (3.5-5.1)
[2018-08-31 05:57] LABS: ALBUMIN 4.3 g/dL (3.4-5.0); TOTAL BILIRUBIN 0.5 mg/dL (<0.1-1.0); TOTAL PROTEIN 7.6 g/dL (6.4-8.2)
[2018-08-31 08:36] VITALS: BP 139/80
[2018-08-31 08:40] VITALS: BP 140/82
--- NOTE | 2018-08-31 13:11 | EKG ---
[place] [address] ELECTROCARDIOGRAM REPORT Name: BOB BARRIENTOS Room: [address] ADM IN .R.#: [id number] Admission: 08/31/18 Attend Phys: Abran Johnson MD Discharge: Date of : 70 Report #: [id number] THIS REPORT FOR: //name// [facility] ED Test Date: 2018-08-31 Test Time: 05:36:34 Pat Name: BOB BARRIENTOS Department: Room: [facility] Gender: F Highballer: Tigre WHITLEY : 1970 Requested By: Xena Frances Order Number: [id number] MD: Vamsi Dunne Measurements Intervals [place] Rate: 109 P: 48 RI: 189 QRS: 13 QRSD: 86 T: 36 QT: 339 QTc: 457 Interpretive Statements Sinus tachycardia RSR' in V1 or V2, right VCD or RVH Baseline wander in lead(s) V3,V6 Compared to ECG 08/20/2018 10:50:37 Sinus rhythm no longer present Electronically Signed On 08-31-2018 13:11:31 CHILD CARE by Vamsi Dunne [email or web address] <ELECTRONICALLY SIGNED> By: Vamsi Dunne MD, [facility] 08/31/18 1311 0536 0536 Vamsi Dunne MD, [facility] /EPI
[2018-08-31 17:33] VITALS: BP 113/64
--- NOTE | 2018-08-31 17:55 | NUR ---
PATIENT ARRIVED TO UNIT AT APPROX 0840. ALERT AND ORIENTED X4. ADMISSION HISTORY AND ASSESSMENT COMPLETED. NO COMPLAINTS OF SOA OR NAUSEA. PAIN AND ANXIETY MANAGED WITH MEDICATION. FLUIDS INFUSED ORDERED. ENEMA ORDERED FOR IMPACTION OF BOWEL WITH PRODUCTION OF A VERY LARGE, HARD STOOL. PATIENT UP AD HERMES. HOURLY ROUNDS MAINTAINED, CALL LIGHT WITHIN REACH. NURSING WILL CONTINUE TO MONITOR.
[2018-08-31 20:57] VITALS: BP 115/75
--- NOTE | 2018-09-01 04:18 | NUR ---
PT REMAINED ALERT AND ORIENTED. PT C/O PAIN, TOPICAL MED GIVEN ORDERED. PT IS SPECIAL PRECAUTIONS WHILE AWAITING TO OBTAIN A STOOL SAMPLE. PT ASKED FOR A WALKER, PT EDUCATED ON BEING A HIGH FALL RISK. PT HAS DECIDED NOT TO USE WALKER WHILE AMBULATING. FALL RISK PRECAUTIONS IN PLACE. SPECIAL PRECAUTIONS IN PLACE. HOURLY ROUNDING COMPLETED. WILL CONTINUE TO MONITOR.
[2018-09-01 04:39] LABS: AMP/METHAMP Negative (Negative); BARBITURATES Negative (Negative); BENZODIAZEPINES POSITIVE (Negative); COCAINE Negative (Negative); METHADONE Negative (Negative); OPIATES Negative (Negative); PCP Negative (Negative); THC Negative (Negative)
[2018-09-01 05:11] LABS: CALCIUM 8.9 mg/dL (8.5-10.1); CREATININE 0.9 mg/dL (0.6-1.3); MAGNESIUM 1.3 mg/dL (1.8-2.4); POTASSIUM 3.5 mmol/L (3.5-5.1)
[2018-09-01] MEDS ORDERED: ATIVAN0.5 MG PO (07:48)
[2018-09-01] MEDS ORDERED: COLACE100 MG PO (07:49)
[2018-09-01 12:00] VITALS: BP 115/75
[2018-09-01 12:03] VITALS: BP 115/75
[2018-09-01 12:17] VITALS: BP 115/75
--- NOTE | 2018-09-01 14:56 | NUR ---
I ASSUMED CARE OF THE PATIENT AT 0700. SHE IS ALERT AND ORIENTED X4 AND IS UP AD HERMES. HOURLY ROUNDING WAS COMPLETED AND PATIENT NEEDS ARE MET. ISOLATION IS MAINTAINED. PAIN IS MANAGED WITH PRN MEDS. STOOL SAMPLE WAS NOT COLLECTED PATIENT DID NOT HAVE A BM BEFORE DISCHARGE. SCRIPTS GIVEN. PATIENT WAS DISCHARGED TO HOME WITH RIDE AT 1335.
== END 2018-09-01 13:35 | disposition home or self-care (01) ==
LOC: M.ERS 04:46 → M.ORTHSURG 07:41 → M.TBA-ER 07:41 → M.ORTHSURG 08:42
PROVIDERS: Emergency Medicine; ADMIT Internal Medicine
DX: K56.41 Fecal impaction (principal); K59.03 Drug induced constipation; F11.23 Opioid dependence with withdrawal; E87.2 Acidosis; E86.9 Volume depletion, unspecified; K29.70 Gastritis, unspecified, without bleeding; N28.1 Cyst of kidney, acquired; E11.9 Type 2 diabetes mellitus without complications; Z79.899 Other long term (current) drug therapy

== ENCOUNTER → 2018-10-04 | Outpatient (CLI) | payer MEDICAID ==
[~2018-10-04] MED LIST changes: +ATIVAN0.5 MG PO; +COLACE100 MG PO; +LOPRESSOR25 PO
== END ==
LOC: M.NUC 06:48
DX: R68.81 Early satiety (principal); R11.2 Nausea with vomiting, unspecified

== ENCOUNTER 2018-10-27 04:52 | Emergency (ER) | payer MEDICAID ==
[~2018-10-27] VITALS: Ht 172.7 cm; Wt 65.8 kg
[2018-10-27] MEDS ORDERED: LISINOPRIL10 MG PO (05:18)
[2018-10-27 05:56] LABS: URINE BILIRUBIN NEGATIVE (Negative); URINE BLOOD NEGATIVE (Negative); URINE CLARITY CLEAR; URINE COLOR YELLOW; URINE GLUCOSE-RANDOM 3+ (Negative); URINE KETONES NEGATIVE (Negative); URINE LEUKOCYTES-REFLEX NEGATIVE (Negative); URINE NITRITE-REFLEX NEGATIVE (Negative); URINE PROTEIN NEGATIVE (Negative); URINE SPECIFIC GRAVITY <= 1.005 (1.005-1.030); URINE UROBILINOGEN 0.2 E.U./dl (0.2-1.0)
[2018-10-27 06:04] LABS: AMP/METHAMP Negative (Negative); BARBITURATES Negative (Negative); BENZODIAZEPINES POSITIVE (Negative); COCAINE Negative (Negative); METHADONE Negative (Negative); OPIATES Negative (Negative); PCP Negative (Negative); THC Negative (Negative)
[2018-10-27] MEDS ORDERED: TRAMADOL 50 MG50 MG PO (06:20)
[2018-10-27 06:47] VITALS: BP 122/67
== END 2018-10-27 06:43 | disposition home or self-care (01) ==
LOC: M.ERS 04:52
PROVIDERS: Emergency Medicine
DX: M54.5 Low back pain (principal); I10 Essential (primary) hypertension; E11.9 Type 2 diabetes mellitus without complications; Z88.0 Allergy status to penicillin; Z88.8 Allergy status to other drugs, medicaments and biological substances; Z90.710 Acquired absence of both cervix and uterus

== ENCOUNTER 2018-11-20 03:46 | Emergency (ER) | payer MEDICAID ==
[~2018-11-20] VITALS: Ht 170.2 cm; Wt 67.1 kg
[2018-11-20 04:05] LABS: URINE BILIRUBIN NEGATIVE (Negative); URINE BLOOD NEGATIVE (Negative); URINE GLUCOSE-RANDOM 2+ (Negative); URINE KETONES NEGATIVE (Negative); URINE LEUKOCYTES-REFLEX NEGATIVE (Negative); URINE NITRITE-REFLEX NEGATIVE (Negative); URINE PROTEIN NEGATIVE (Negative); URINE SPECIFIC GRAVITY <= 1.005 (1.005-1.030); URINE UROBILINOGEN 0.2 E.U./dl (0.2-1.0)
[2018-11-20 04:07] LABS: URINE CLARITY CLEAR; URINE COLOR YELLOW
[2018-11-20 04:12] LABS: AMP/METHAMP Negative (Negative); BARBITURATES Negative (Negative); BENZODIAZEPINES POSITIVE (Negative); COCAINE Negative (Negative); METHADONE Negative (Negative); OPIATES Negative (Negative); PCP Negative (Negative); THC Negative (Negative)
[2018-11-20 05:00] VITALS: BP 123/76
== END 2018-11-20 05:00 | disposition home or self-care (01) ==
LOC: M.ERS 03:46
PROVIDERS: Emergency Medicine
DX: G89.29 Other chronic pain (principal); M54.5 Low back pain; I10 Essential (primary) hypertension; E11.9 Type 2 diabetes mellitus without complications; Z90.710 Acquired absence of both cervix and uterus; Z88.0 Allergy status to penicillin

== ENCOUNTER 2019-04-15 14:33 | Emergency (ER) | payer MEDICAID ==
[~2019-04-15] VITALS: Ht 167.6 cm; Wt 61.2 kg
[2019-04-15 15:27] LABS: URINE BILIRUBIN NEGATIVE (Negative); URINE BLOOD NEGATIVE (Negative); URINE CLARITY CLEAR; URINE COLOR YELLOW; URINE GLUCOSE-RANDOM NEGATIVE (Negative); URINE KETONES 1+ (Negative); URINE LEUKOCYTES-REFLEX NEGATIVE (Negative); URINE NITRITE-REFLEX NEGATIVE (Negative); URINE PROTEIN NEGATIVE (Negative); URINE SPECIFIC GRAVITY 1.015 (1.005-1.030); URINE UROBILINOGEN 0.2 E.U./dl (0.2-1.0)
[2019-04-15 15:37] LABS: ABSOLUTE EOSINOPHILS 0.1 thou/uL (0.0-0.7); ABSOLUTE LYMPHOCYTES 1.7 thou/uL (0.8-5.3); ABSOLUTE MONOCYTES 0.4 thou/uL (0.0-1.2); ABSOLUTE NEUTROPHILS 2.4 thou/uL (1.6-8.1); BASOPHILS 0.5 %; EOSINOPHILS 1.7 %; HEMATOCRIT 39.2 % (37.0-47.0); HEMOGLOBIN 13.7 gm/dL (12.0-15.0); LYMPHOCYTES 36.8 %; MCH 31.9 pg (26.0-34.0); MCV 91.2 fL (80.0-100.0); MONOCYTES 9.4 %; MPV 8.7 fl. (7.2-11.1); NUCLEATED RBCS 0 /100WBC; PLATELET COUNT* 273 thou/uL (150-400); POLYS 51.6 %; RDW-CV 12.7 % (10.5-14.5); WBC 4.7 thou/uL (4.0-11.0)
[2019-04-15 15:44] LABS: CALCIUM 9.4 mg/dL (8.5-10.1); CREATININE 1.1 mg/dL (0.6-1.3); POTASSIUM 3.7 mmol/L (3.5-5.1)
[2019-04-15 15:48] LABS: ALBUMIN 3.8 g/dL (3.4-5.0); TOTAL BILIRUBIN 0.8 mg/dL (<0.1-1.0); TOTAL PROTEIN 6.9 g/dL (6.4-8.2)
[2019-04-15] MEDS ORDERED: ONDANSETRON HCL4 M2 PO (17:04)
[2019-04-15] MEDS ORDERED: LOMOTIL TABLET1 EACH PO (17:04)
[2019-04-15] MEDS ORDERED: BENTYL 20 MG TA20 M1 PO (17:04)
[2019-04-15] MEDS ORDERED: FLAGYL500 M1 PO (17:05)
[2019-04-15 17:25] VITALS: BP 129/58
== END 2019-04-15 17:26 | disposition home or self-care (01) ==
LOC: M.ERS 14:33
PROVIDERS: Nurse Practitioner Family
DX: K52.9 Noninfective gastroenteritis and colitis, unspecified (principal); E11.65 Type 2 diabetes mellitus with hyperglycemia; I10 Essential (primary) hypertension; Z88.0 Allergy status to penicillin; Z90.710 Acquired absence of both cervix and uterus

== ENCOUNTER 2020-04-09 13:02 | Emergency (ER) | payer MEDICAID ==
[~2020-04-09] VITALS: Ht 170.2 cm; Wt 61.2 kg
[~2020-04-09 13:02] MED LIST changes: +LOMOTIL TABLET1 EACH PO; +ONDANSETRON HCL4 M2 PO
[2020-04-09 13:29] VITALS: BP 142/95
[2020-04-09] MEDS ORDERED: DIABETES MEDICATION (13:32)
[2020-04-09] MEDS ORDERED: LORAZEPAM 0.50.5 MG PO (13:40)
== END 2020-04-09 13:43 | disposition home or self-care (01) ==
LOC: M.ERS 13:02
DX: F41.0 Panic disorder [episodic paroxysmal anxiety] (principal); I10 Essential (primary) hypertension; E11.9 Type 2 diabetes mellitus without complications; Z90.710 Acquired absence of both cervix and uterus; Z88.0 Allergy status to penicillin

== ENCOUNTER 2020-10-25 21:20 | Emergency (ER) | payer MEDICAID ==
[~2020-10-25] VITALS: Ht 167.6 cm; Wt 65.8 kg
[~2020-10-25 21:20] MED LIST changes: +DIABETES MEDICATION; +LORAZEPAM 0.50.5 MG PO
[2020-10-25] MEDS ORDERED: BUTALB-APAP-CA1 EACH PO (23:57)
[2020-10-26 00:07] VITALS: BP 120/59
--- NOTE | 2020-10-26 09:53 | EKG ---
[place] [address] ELECTROCARDIOGRAM REPORT Name: BOB BARRIENTOS Room: [facility]#: [id number] Admission: 10/25/20 Attend Phys: Discharge: 10/26/20 Date of : 70 Date of Service: 10/25/202132 Report #: [id number] THIS REPORT FOR: //name// [facility] ED Test Date: 2020-10-25 Test Time: 21:33:52 Pat Name: BOB BARRIENTOS Department: Room: Gender: F Postal Carrier: : 1970 Requested By: Xena Frances Order Number: [id number] MD: Vamsi Dunne Measurements Intervals [place] Rate: 88 P: 41 [place]: 195 QRS: 9 QRSD: 85 T: 36 QT: 381 QTc: 461 Interpretive Statements Sinus rhythm Abnormal R-wave progression, early transition Compared to ECG 08/31/2018 05:36:34 Sinus tachycardia no longer present Electronically Signed On 10-26-2020 9:53:06 CDT by Vamsi Dunne [email or web address] <ELECTRONICALLY SIGNED> By: Vamsi Dunne MD, [facility] 10/26/20 0953 32 32 Vamsi Dunne MD, [facility] /EPI
== END 2020-10-26 00:07 | disposition home or self-care (01) ==
LOC: M.ERS 21:20
DX: G43.909 Migraine, unspecified, not intractable, without status migrainosus (principal); E11.9 Type 2 diabetes mellitus without complications; I10 Essential (primary) hypertension; Z88.0 Allergy status to penicillin; Z90.710 Acquired absence of both cervix and uterus

== ENCOUNTER 2020-11-21 05:31 | Emergency (ER) | payer MEDICAID ==
[~2020-11-21] VITALS: Ht 167.6 cm; Wt 71.2 kg
[~2020-11-21 05:31] MED LIST changes: +BUTALB-APAP-CA1 EACH PO
[2020-11-21] MEDS ORDERED: ZOFRAN ODT4 MG PO (06:02)
[2020-11-21] MEDS ORDERED: HYDROCODON-ACE1 EAC8 PO (06:02)
[2020-11-21 06:11] LABS: ABSOLUTE BASOPHILS 0.1 thou/uL (0.0-0.2); ABSOLUTE LYMPHOCYTES 1.9 thou/uL (0.8-5.3); ABSOLUTE NEUTROPHILS 8.2 thou/uL (1.6-8.1); BASOPHILS 0.5 %; EOSINOPHILS 0.3 %; HEMATOCRIT 38.6 % (37.0-47.0); LYMPHOCYTES 16.9 %; MCH 31.5 pg (26.0-34.0); MCHC 33.8 g/dL (28.0-37.0); MCV 93.3 fL (80.0-100.0); MONOCYTES 8.9 %; MPV 8.9 fl. (7.2-11.1); NUCLEATED RBCS 0 /100WBC; PLATELET COUNT* 274 thou/uL (150-400); POLYS 73.4 %; RBC 4.13 mil/uL (4.20-5.00); RDW-CV 13.2 % (10.5-14.5); WBC 11.2 thou/uL (4.0-11.0)
[2020-11-21 06:22] LABS: CALCIUM 8.8 mg/dL (8.5-10.1); CREATININE 0.9 mg/dL (0.6-1.3); POTASSIUM 3.4 mmol/L (3.5-5.1)
[2020-11-21 06:27] LABS: TOTAL BILIRUBIN 0.3 mg/dL (<0.1-1.0); TOTAL PROTEIN 7.6 g/dL (6.4-8.2)
[2020-11-21 07:00] VITALS: BP 136/76
== END 2020-11-21 07:00 | disposition home or self-care (01) ==
LOC: M.ERS 05:31
PROVIDERS: Emergency Medicine
DX: F07.81 Postconcussional syndrome (principal); I10 Essential (primary) hypertension; E11.9 Type 2 diabetes mellitus without complications; Z88.0 Allergy status to penicillin; Z79.899 Other long term (current) drug therapy; Z90.710 Acquired absence of both cervix and uterus

== ENCOUNTER 2020-12-26 22:53 | Emergency (ER) | payer MEDICAID ==
[~2020-12-26] VITALS: Ht 167.6 cm; Wt 65.8 kg
[~2020-12-26 22:53] MED LIST changes: +HYDROCODON-ACE1 EAC8 PO
[2020-12-27] MEDS ORDERED: BUTALB-APAP-CA1 EACH PO ×2 (02:39→02:49)
[2020-12-27] MEDS ORDERED: ZOFRAN ODT4 MG PO ×2 (02:39→02:49)
[2020-12-27 02:52] VITALS: BP 158/83
== END 2020-12-27 02:52 | disposition home or self-care (01) ==
LOC: M.ERS 22:53
DX: G43.909 Migraine, unspecified, not intractable, without status migrainosus (principal); I10 Essential (primary) hypertension; E11.9 Type 2 diabetes mellitus without complications; Z90.710 Acquired absence of both cervix and uterus; Z88.0 Allergy status to penicillin

== ENCOUNTER 2021-01-10 14:19 | Emergency (ER) | payer MEDICAID ==
[~2021-01-10] VITALS: Ht 167.6 cm; Wt 65.8 kg
[~2021-01-10 14:19] MED LIST changes: -LOPRESSOR25 PO; +LOPRESSOR50 PO
[2021-01-10 15:02] LABS: URINE BILIRUBIN NEGATIVE (Negative); URINE BLOOD NEGATIVE (Negative); URINE CLARITY CLEAR; URINE COLOR YELLOW; URINE GLUCOSE-RANDOM NEGATIVE (Negative); URINE KETONES NEGATIVE (Negative); URINE LEUKOCYTES-REFLEX NEGATIVE (Negative); URINE NITRITE-REFLEX NEGATIVE (Negative); URINE PROTEIN NEGATIVE (Negative); URINE SPECIFIC GRAVITY <= 1.005 (1.005-1.030); URINE UROBILINOGEN 0.2 E.U./dl (0.2-1.0)
[2021-01-10 15:19] LABS: ABSOLUTE EOSINOPHILS 0.1 thou/uL (0.0-0.7); ABSOLUTE LYMPHOCYTES 1.9 thou/uL (0.8-5.3); ABSOLUTE MONOCYTES 0.5 thou/uL (0.0-1.2); ABSOLUTE NEUTROPHILS 4.8 thou/uL (1.6-8.1); BASOPHILS 0.5 %; EOSINOPHILS 1.6 %; HEMATOCRIT 36.8 % (37.0-47.0); HEMOGLOBIN 13.2 gm/dL (12.0-15.0); LYMPHOCYTES 25.6 %; MCH 32.7 pg (26.0-34.0); MCHC 35.8 g/dL (28.0-37.0); MCV 91.3 fL (80.0-100.0); MONOCYTES 6.4 %; MPV 8.4 fl. (7.2-11.1); NUCLEATED RBCS 0 /100WBC; PLATELET COUNT* 258 thou/uL (150-400); POLYS 65.9 %; RBC 4.03 mil/uL (4.20-5.00); RDW-CV 12.6 % (10.5-14.5); WBC 7.3 thou/uL (4.0-11.0)
[2021-01-10 15:28] LABS: CALCIUM 8.8 mg/dL (8.5-10.1); CREATININE 0.9 mg/dL (0.6-1.3); POTASSIUM 3.8 mmol/L (3.5-5.1)
[2021-01-10 15:40] LABS: ALBUMIN 4.2 g/dL (3.4-5.0); MAGNESIUM 1.2 mg/dL (1.8-2.4); TOTAL BILIRUBIN 0.3 mg/dL (<0.1-1.0); TOTAL PROTEIN 7.6 g/dL (6.4-8.2)
[2021-01-10] MEDS ORDERED: BENTYL 10 MG CA10 M1 PO (16:49)
[2021-01-10] MEDS ORDERED: ZOFRAN ODT4 MG PO (16:49)
[2021-01-10] MEDS ORDERED: ATIVAN0.5 M1 PO (17:05)
[2021-01-10 17:12] VITALS: BP 134/78
--- NOTE | 2021-01-11 12:03 | EKG ---
[place] [address] ELECTROCARDIOGRAM REPORT Name: BOB BARRIENTOS Room: 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: : 1970 Requested By: Simin Peter Order Number: [id number] MD: Mikael Elizondo Measurements Intervals [place] Rate: 78 P: [place]: QRS: 9 QRSD: 81 T: 38 QT: 413 QTc: 471 Interpretive Statements Normal sinus rhythm Abnonormal R-wave progression, early transition Compared to ECG 10/25/2020 21:33:52 No significant change Electronically Signed On 01-11-2021 12:03:03 CDT by Mikael Elizondo [email or web address] <ELECTRONICALLY SIGNED> By: Dima Elizondo MD, [facility] 01/11/21 1203 1503 1503 Dima Elizondo MD, [facility] /EPI
--- NOTE | 2021-01-11 12:13 | EKG ---
[place] [address] ELECTROCARDIOGRAM REPORT Name: BOB BARRIENTOS Room: [facility]#: [id number] Admission: 01/10/21 Attend Phys: Discharge: 01/10/21 Date of : 70 Date of Service: 01/10/21 1552 Report #: [id number] THIS REPORT FOR: //name// [facility] ED Test Date: 2021-01-10 Test Time: 15:52:04 Pat Name: BOB BARRIENTOS Department: Room: Gender: F Ladle Pourer: : 1970 Requested By: Simin Peter Order Number: [id number] MD: Mikael Elizondo Measurements Intervals [place] Rate: 68 P: 12 NE: 191 QRS: 6 QRSD: 87 T: 49 QT: 434 QTc: 462 Interpretive Statements Sinus rhythm Abnormal R-wave progression, early transition Compared to ECG 01/10/2021 15:03:48 Atrial fibrillation no longer present Electronically Signed On 01-11-2021 12:12:49 CDT by Mikael Elizondo [email or web address] <ELECTRONICALLY SIGNED> By: Dima Elizondo MD, [facility] 01/11/21 1212 155 155 Dima Elizondo MD, [facility] /EPI
== END 2021-01-10 17:13 | disposition home or self-care (01) ==
LOC: M.ERS 14:19
PROVIDERS: Nurse Practitioner Family
DX: R10.12 Left upper quadrant pain (principal); R19.7 Diarrhea, unspecified; E11.9 Type 2 diabetes mellitus without complications; I10 Essential (primary) hypertension; G43.909 Migraine, unspecified, not intractable, without status migrainosus; Z88.0 Allergy status to penicillin; Z90.710 Acquired absence of both cervix and uterus

== ENCOUNTER 2021-02-05 23:57 | Emergency (ER) | payer MEDICAID ==
[~2021-02-05] VITALS: Ht 167.6 cm; Wt 65.8 kg
[~2021-02-05 23:57] MED LIST changes: +ATIVAN0.5 M1 PO; +BENTYL 10 MG CA10 M1 PO
[2021-02-06] MEDS ORDERED: PERIDEX15 ML SWISH&SPIT (01:27)
[2021-02-06] MEDS ORDERED: ACETAMINOPHEN-1 EAC2 PO (01:27)
[2021-02-06] MEDS ORDERED: DOXYCYCLINE 10100 MG PO (01:27)
[2021-02-06 01:46] VITALS: BP 168/111
== END 2021-02-06 01:46 | disposition home or self-care (01) ==
LOC: M.ERS 23:57
DX: S02.5XXA Fracture of tooth (traumatic), initial encounter for closed fracture (principal); K02.9 Dental caries, unspecified; K05.00 Acute gingivitis, plaque induced; E11.9 Type 2 diabetes mellitus without complications; I10 Essential (primary) hypertension; G43.909 Migraine, unspecified, not intractable, without status migrainosus; Z88.0 Allergy status to penicillin; Z90.710 Acquired absence of both cervix and uterus; X58.XXXA Exposure to other specified factors, initial encounter; Y93.89 Activity, other specified; Y92.89 Other specified places as the place of occurrence of the external cause; Y99.8 Other external cause status

== ENCOUNTER 2021-03-28 04:55 | Emergency (ER) | payer MEDICAID ==
[~2021-03-28] VITALS: Ht 170.2 cm; Wt 61.7 kg
[~2021-03-28 04:55] MED LIST changes: +ACETAMINOPHEN-1 EAC2 PO; +PERIDEX15 ML SWISH&SPIT
[2021-03-28 06:50] VITALS: BP 131/67
[2021-03-28] MEDS ORDERED: BUTALB-APAP-CA1 EACH PO (06:56)
[2021-03-28] MEDS ORDERED: DIFLUCAN150 MG PO (06:56)
[2021-03-28 10:34] LABS: URINE BILIRUBIN NEGATIVE (Negative); URINE BLOOD NEGATIVE (Negative); URINE CLARITY CLEAR; URINE COLOR YELLOW; URINE GLUCOSE-RANDOM 1+ (Negative); URINE KETONES NEGATIVE (Negative); URINE LEUKOCYTES-REFLEX 1+ (Negative); URINE NITRITE-REFLEX NEGATIVE (Negative); URINE PROTEIN NEGATIVE (Negative); URINE SPECIFIC GRAVITY 1.015 (1.005-1.030); URINE UROBILINOGEN 0.2 E.U./dl (0.2-1.0)
[2021-03-28 10:48] LABS: CASTS None Seen /LPF (None Seen); CRYSTALS None Seen /LPF (None Seen); SQUAMOUS 0-3 Few /LPF (0-3); URINE RBC 0-2 Rare /HPF (0-2); URINE WBC-REFLEX 0-5 Rare /HPF (0-5)
== END 2021-03-28 06:50 | disposition home or self-care (01) ==
LOC: M.ERS 04:55
PROVIDERS: Emergency Medicine
DX: G43.909 Migraine, unspecified, not intractable, without status migrainosus (principal); R19.7 Diarrhea, unspecified; I10 Essential (primary) hypertension; E11.9 Type 2 diabetes mellitus without complications; Z90.710 Acquired absence of both cervix and uterus; Z79.899 Other long term (current) drug therapy; Z88.0 Allergy status to penicillin

== ENCOUNTER 2021-06-01 21:38 | Emergency (ER) | payer MEDICAID ==
[~2021-06-01] VITALS: Ht 167.6 cm; Wt 47.2 kg
[~2021-06-01 21:38] MED LIST changes: +DIFLUCAN150 MG PO
[2021-06-01] MEDS ORDERED: CLEOCIN HCL150 MG PO (21:45)
[2021-06-01] MEDS ORDERED: ULTRAM 50MG TAB50 MG PO (21:49)
[2021-06-01 22:02] VITALS: BP 135/62
== END 2021-06-01 22:03 | disposition home or self-care (01) ==
LOC: M.ERS 21:38
DX: K08.89 Other specified disorders of teeth and supporting structures (principal); E11.9 Type 2 diabetes mellitus without complications; I10 Essential (primary) hypertension; G43.909 Migraine, unspecified, not intractable, without status migrainosus; Z79.899 Other long term (current) drug therapy; Z90.710 Acquired absence of both cervix and uterus; Z88.0 Allergy status to penicillin

== ENCOUNTER 2021-06-24 02:05 | Emergency (ER) | payer MEDICAID ==
[~2021-06-24] VITALS: Ht 167.6 cm; Wt 64.4 kg
[2021-06-24] MEDS ORDERED: TRAMADOL 50 MG50 MG PO (02:18)
[2021-06-24] MEDS ORDERED: CLEOCIN HCL300 MG PO (02:22)
[2021-06-24 02:25] VITALS: BP 181/87
== END 2021-06-24 02:26 | disposition home or self-care (01) ==
LOC: M.ERS 02:05
DX: K08.89 Other specified disorders of teeth and supporting structures (principal); E11.9 Type 2 diabetes mellitus without complications; I10 Essential (primary) hypertension; G43.909 Migraine, unspecified, not intractable, without status migrainosus; Z88.0 Allergy status to penicillin; Z79.899 Other long term (current) drug therapy; Z90.710 Acquired absence of both cervix and uterus

== ENCOUNTER 2021-07-10 22:31 | Emergency (ER) | payer MEDICAID ==
[~2021-07-10] VITALS: Ht 167.6 cm; Wt 66.2 kg
[2021-07-10 23:20] LABS: INFLUENZA A ANTIGEN Negative (Negative); INFLUENZA B ANTIGEN Negative (Negative)
[2021-07-10 23:24] LABS: ABSOLUTE BASOPHILS 0.1 thou/uL (0.0-0.2); ABSOLUTE EOSINOPHILS 0.1 thou/uL (0.0-0.7); ABSOLUTE LYMPHOCYTES 1.9 thou/uL (0.8-5.3); ABSOLUTE MONOCYTES 0.6 thou/uL (0.0-1.2); ABSOLUTE NEUTROPHILS 4.8 thou/uL (1.6-8.1); BASOPHILS 0.7 %; EOSINOPHILS 1.6 %; HEMATOCRIT 39.1 % (37.0-47.0); HEMOGLOBIN 13.9 gm/dL (12.0-15.0); LYMPHOCYTES 25.4 %; MCHC 35.5 g/dL (28.0-37.0); MCV 90.1 fL (80.0-100.0); MONOCYTES 8.5 %; MPV 8.8 fl. (7.2-11.1); NUCLEATED RBCS 0 /100WBC; PLATELET COUNT* 270 thou/uL (150-400); POLYS 63.8 %; RBC 4.33 mil/uL (4.20-5.00); RDW-CV 12.6 % (10.5-14.5); WBC 7.4 thou/uL (4.0-11.0)
[2021-07-10 23:36] LABS: CALCIUM 9.5 mg/dL (8.5-10.1); CREATININE 1.1 mg/dL (0.6-1.3); POTASSIUM 3.8 mmol/L (3.5-5.1)
[2021-07-10 23:43] LABS: ALBUMIN 4.2 g/dL (3.4-5.0); MAGNESIUM 1.7 mg/dL (1.8-2.4); TOTAL BILIRUBIN 0.3 mg/dL (<0.1-1.0); TOTAL PROTEIN 7.9 g/dL (6.4-8.2)
[2021-07-11] MEDS ORDERED: LEVOFLOXACIN500 MG PO (02:17)
[2021-07-11] MEDS ORDERED: XANAX 0.5 MG0.5 M1 PO (02:17)
[2021-07-11 02:37] VITALS: BP 133/65
--- NOTE | 2021-07-11 14:39 | EKG ---
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 Engineer: [place] : 1970 Requested By: Lo Eduardo Order Number: [id number] MD: Vamsi Dunne Measurements Intervals [place] Rate: 96 P: 54 [place]: 205 QRS: 36 QRSD: 71 T: 58 QT: 355 QTc: 449 Interpretive Statements Sinus rhythm Prolonged [place] interval Abnormal R-wave progression, early transition Borderline ST elevation, lateral leads early repolarization Compared to ECG 01/10/2021 15:52:04 First degree AV block now present ST (T wave) deviation now present Electronically Signed On 07-11-2021 14:39:14 SUSTAINABILITY SPECIALIST by Vamsi Dunne [email or web address] <ELECTRONICALLY SIGNED> By: Vamsi Dunne MD, [facility] 07/11/21 1439 2253 2253 Vamsi Dunne MD, FACC /EPI
== END 2021-07-11 02:38 | disposition home or self-care (01) ==
LOC: M.ERS 22:31
PROVIDERS: Personal Emergency Response Attendant
DX: E86.0 Dehydration (principal); Z20.822 Contact with and (suspected) exposure to COVID-19; J18.9 Pneumonia, unspecified organism; R53.1 Weakness; E11.9 Type 2 diabetes mellitus without complications; I10 Essential (primary) hypertension; G43.909 Migraine, unspecified, not intractable, without status migrainosus; Z90.710 Acquired absence of both cervix and uterus; Z79.899 Other long term (current) drug therapy; Z88.0 Allergy status to penicillin